=== PATIENT | male | born 1990 | race Two or more races ===

== ENCOUNTER 2017-05-28 14:54 | Inpatient (IN) | payer MEDICAID ==
[~2017-05-28] VITALS: Ht 182.9 cm; Wt 99.8 kg
[2017-05-28] MEDS ORDERED: diphenhydrAMINE 50 MG/1 ML VIAL IV ONE ×2 (16:00→19:15)
[2017-05-28] MEDS ORDERED: FAMOTIDINE. 20 MG/2 ML VIAL IV ONE ×2 (16:00→16:21)
[2017-05-28] MEDS ORDERED: IV NORMAL SALINE 1000 ML BAG IV ONE ×2 (16:00→20:30)
[2017-05-28 16:06] LABS: BASOPHILS % (AUTO) 0.2 % (0.0-2.0); EOSINOPHILS % (AUTO) 0.2 % (0.0-7.0); HEMOGLOBIN 14.6 G/DL (14.0-18.0); LYMPHOCYTES # (AUTO) 1.1 K/UL (0.8-4.8); LYMPHOCYTES % (AUTO) 8.4 % (20.5-51.5); MEAN CORPUSCULAR HEMOGLOBIN 29.1 UUG (27.0-31.0); MEAN CORPUSCULAR HGB CONC 34 g/dL (32.0-37.0); MEAN CORPUSCULAR VOLUME 85.8 FL (82.0-92.0); MONOCYTES % (AUTO) 8.2 % (0.0-11.0); NEUTROPHILS # (AUTO) 10.5 K/UL (1.8-8.9); PLATELET COUNT (AUTO) 318 K/UL (150-450); RED BLOOD CELL COUNT(AUTO) 5.01 MIL/UL (4.7-6.1); WHITE BLOOD COUNT (AUTO) 12.6 K/UL (4.0-11.2)
[2017-05-28] MEDS ORDERED: diphenhydrAMINE 50 MG/1 ML VIAL ONE ×2 (16:21→19:32)
[2017-05-28] MEDS ORDERED: HYDROMORPHONE 1 MG/1 ML DISP.SYRIN ONE ×3 (16:29→19:48)
[2017-05-28] MEDS ORDERED: HYDROMORPHONE 1 MG/1 ML DISP.SYRIN IV ONE ×3 (16:30→19:45)
--- NOTE | 2017-05-28 16:32 | NUR ---
saline locked placed earlier, meds administered, 1l 0.9ns infusing. pt transported via [place] to ct scan.
[2017-05-28] MEDS ORDERED: ACETAMINOPHEN ES 500 MG TABLET PO ONE (16:45)
[2017-05-28] MEDS ORDERED: ACETAMINOPHEN ES 500 MG TABLET ONE (17:10)
[2017-05-28 17:43] LABS: CREATININE 1.2 mg/dL (0.6-1.3); POTASSIUM 3.3 mmol/L (3.5-5.1)
[2017-05-28] MEDS ORDERED: LIDOCAINE VISCUS 2% 15 ML UDC MM ONE ×2 (17:45→21:00)
[2017-05-28] MEDS ORDERED: MAG HYDROX/AL HYDROX/SIMETH 30 ML LIQUID UDC PO ONE (17:45)
[2017-05-28 17:48] LABS: BILIRUBIN,DIRECT 0.4 mg/dL (0.0-0.2); BILIRUBIN,TOTAL 5.7 mg/dL (0.2-1.0); TOTAL PROTEIN, SERUM 8.4 g/dL (6.4-8.2)
--- NOTE | 2017-05-28 17:59 | NUR ---
all md orders completed. pt positioned for comfort.
[2017-05-28] MEDS ORDERED: LIDOCAINE VISCUS 2% 15 ML UDC ONE ×2 (18:04→21:22)
[2017-05-28] MEDS ORDERED: MAG HYDROX/AL HYDROX/SIMETH 30 ML LIQUID UDC ONE (18:04)
[2017-05-28] MEDS ORDERED: POT CHLORIDE/POT BICARB/CIT AC 25 MEQ TABLET.EFF PO ONE (18:30)
[2017-05-28] MEDS ORDERED: POTASSIUM BICARBONATE/CIT AC 25 MEQ TABLET.EFF ONE (18:41)
--- NOTE | 2017-05-28 19:05 | NUR ---
Received report from VICTORINO Cadet. Assumed care of pt at this time. Dr. Brooks at bedside.
--- NOTE | 2017-05-28 19:10 | NUR ---
all md orders completed. bedside sbar repoert to jaime ghotra. pt positioned for comfort, urine was sent to the lab.
[2017-05-28 19:12] LABS: *BILIRUBIN,URIN NEGATIVE (NEGATIVE); *BLOOD, URINE NEGATIVE (NEGATIVE); *CLARITY,URINE CLEAR (CLEAR); *COLOR,URINE YELLOW (YELLOW); *KETONES,URINE NEGATIVE (NEGATIVE); *PROTEIN,URINE NEGATIVE (NEGATIVE); *UROBILINOGEN,URINE 0.2 E.U./dl (NORMAL); LEUKOCYTE ESTERASE ,URINE NEGATIVE (NEGATIVE); NITRITE, URINE NEGATIVE (NEGATIVE); PH,URINE 5.5 (5.0-8.0); UGLUCOSE NEGATIVE (NEGATIVE)
[2017-05-28] MEDS ORDERED: LEVOFLOXACIN 750 MG/D5W 150 ML PIGGYBACK IV ONE (19:15)
[2017-05-28 19:26] LABS: BACTERIA,URINE NONE SEEN /HPF (NONE SEEN); RBC,URINE NONE SEEN /HPF (0-3); SQUAMOUS EPITHELIAL CELL,UR FEW /HPF (NONE SEEN); WBC,URINE NONE SEEN /HPF (0-3)
[2017-05-28] MEDS ORDERED: MORPHINE SULFATE 2 MG/1 ML DISP.SYRIN IV ONE (19:30)
[2017-05-28] MEDS ORDERED: ONDANSETRON 4 MG/2 ML VIAL IV ONE (19:30)
[2017-05-28] MEDS ORDERED: MORPHINE SULFATE 4 MG/1 ML DISP.SYRIN ONE ×2 (19:42→22:16)
[2017-05-28] MEDS ORDERED: ONDANSETRON 4 MG/2 ML VIAL ONE (19:42)
--- NOTE | 2017-05-28 19:42 | NUR ---
Pt medicated for pain, nausea and itching. Will monitor for effects of medication. Pt resting in position of comfort for self. Admission pending.
--- NOTE | 2017-05-28 19:54 | NUR ---
ABT infusion started, will monitor for any adverse reactions.
[2017-05-28] MEDS ORDERED: LEVOFLOXACIN 750MG/D5W 150 ML IV ONE (20:00)
--- NOTE | 2017-05-28 20:30 | NUR ---
Reviewed chart with Dr. Alvarado, who at this time decided to call a "code sepsis". Second liter of NS started, infusing freely to gravity. ABT infusion conts, no adverse reactions noted at this time. EPIC paged to update on pt condition.
--- NOTE | 2017-05-28 20:50 | NUR ---
Report called to VICTORINO Jesus. Preparing to transfer pt to the floor
--- NOTE | 2017-05-28 21:11 | NUR ---
Pt requesting more pain medication. Dr. Alvarado into speak with pt.
--- NOTE | 2017-05-28 21:25 | NUR ---
RECEIVED PT FROM ER,GOT REPORT FROM FAHAD/NATUROPATH;VIA RADHA ACCOMPANIED BY LIZETTE/PT'S FIANCE;NEWLY ADMISSION W/DX OF FEVER,LIVER FAILURE;PT'S A/A/O X4 C/O ABDOMINAL PAIN 08/15;EDUCATED TO PT,WILL CALL MD FOR ADMISSION ORDER.CALLED LORENZO SULLIVAN/SILK SCREEN PRINTING RACKER WHO'S MAGNETIC RESONANCE IMAGING COORDINATOR FOR ,DISCUSSED W/HER ABOUT PT REQUESTED;PER LAURIE STATED "I ALREADY PUT ORDERS IN";CARRIED OUT ORDERS AND UPDATED THE PLAN OF CARE TO PT.PT'S ANXIOUS ON/OFF.KEPT COMFORT.CALL-LIGHT WITHIN REACH.CLOSELY MONITORING TO PT,STILL GAVE FLUID W/NSS BOLUS FROM ER,EDUCATED TO PT;HE VERBALIZED UNDERSTANDING.
[2017-05-28 21:39] VITALS: BP 103/77
[2017-05-28] MEDS ORDERED: MAGNESIUM HYDROXIDE 30 ML LIQUID UDC PO PRN (21:45)
[2017-05-28] MEDS ORDERED: ZOLPIDEM 5 MG TABLET PO PRN (21:45)
[2017-05-28] MEDS ORDERED: HYDROCODONE/APAP 5-325MG TABLET PO PRN (21:45)
[2017-05-28] MEDS ORDERED: ONDANSETRON 4 MG/2 ML VIAL IV PRN (21:45)
[2017-05-28] MEDS: PIPERACILLIN/TAZOBACTAM/D5W 3.375 G in PREMIXED 1 EACH IV SCH (22:00)
[2017-05-28] MEDS: MORPHINE SULFATE 2 MG/1 ML DISP.SYRIN IV PRN (22:11)
[2017-05-28] MEDS: ACETAMINOPHEN 325 MG TABLET PO PRN (22:49)
[2017-05-28] MEDS: IV NS 1000 ML 1,000 ML IV PRN (22:52)
[2017-05-28] MEDS ORDERED: ACETAMINOPHEN 325 MG TABLET ONE (22:59)
[2017-05-28] MEDS ORDERED: PIPERACILLIN SODIUM/TAZO 3.375 GM VIAL ONE (23:30)
--- NOTE | 2017-05-28 23:50 | NUR ---
SINCE ADMISSION UNTIL NOW PT CALLED FOR MANY TIMES,REQUESTED FOR DILAUDID EVERY TIME,EDUCATED TO PT ABOUT TREATMENT,CALLED LAURIE AND DISCUSSED W/HER ABOUT PT'S NEED;SHE STATED THAT"MORPHINE'S THE ONLY MEDICATION THAT PT'S BE ABLE TO GET IT DUE TO PT'S MEDICAL PROBLEM DURING THIS TIME";WENT BACK TO EXPLAIN TO PT;ICE PACK'S GIVEN TO PT;EDUCATED TO PT ABOUT DISEASE PROCESS,HE STATED THAT"I'S SO SICK";ASSISTED FOR TEPID SPONGE;GAVE MOTRIN TO PT( RECORD) W/SIPPED OF WATER;CONTINUED MONITORING TO PT.
[2017-05-29] MEDS ORDERED: IBUPROFEN 600 MG TABLET PO PRN (00:15)
[2017-05-29] MEDS ORDERED: IBUPROFEN 600 MG TABLET ONE (00:34)
[2017-05-29] MEDS: IV NS 1000 ML 1,000 ML IV PRN (01:30)
[2017-05-29] MEDS: diphenhydrAMINE 50 MG/1 ML VIAL IV PRN (01:52)
--- NOTE | 2017-05-29 01:52 | NUR ---
ASSISTED PT FOR AM CARE IN THE BATHROOM PER PT REQUESTED;PT C/O ITCHING @ ALL OVER BODY ESPECIALLY FEET AND HANDS;CHECKED ALL BODY;NO RASH'S SEEN;CALLED ALICE FELIX AND NOTIFIED HER ABOUT IT;GOT ORDER FOR BENADRYL 25 MG IVP;GAVE TO PT AT THIS TIME;EDUCATED TO PT;HE VERBALIZED UNDERSTANDING.CONTINUED MONITORING TO PT.CHARGE NURSE'S NOTIFIED ABOUT PT'S BEHAVIOR,AND AWARE ABOUT IT.
[2017-05-29] MEDS ORDERED: diphenhydrAMINE 50 MG/1 ML VIAL ONE (02:01)
[2017-05-29] MEDS: MORPHINE SULFATE 2 MG/1 ML DISP.SYRIN IV PRN ×2 (02:02→05:56)
[2017-05-29] MEDS ORDERED: MORPHINE SULFATE 4 MG/1 ML DISP.SYRIN ONE ×3 (02:11→22:35)
--- NOTE | 2017-05-29 04:25 | NUR ---
PT REQUESTED TO CHECK TEMPERATURE ON/OFF(SEE RECORD) STATED THAT" I WANT TO KNOW FOR MY RECORD),ALSO CHANGED HIS GOWN AND ALL BED SHEETS,STATED THAT" I WANT TO MAKE SURE,IT'LL BE CLEANED BECAUSE I'S SWEATING A ALT",THE NEED'S MET.KEPT COMFORT AND NPO ORDER.MAINTAINED IVF ORDER,CLOSELY MONITORING TO PT.TOLD PT TO RELAX DUE TO PT KEPT ASKING ABOUT WHAT'S GOING TO BE HAPPENED TO ME IN THE MORNING,EVEN THOUGH I ALREADY EXPLAINED TO HIM MANY TIMES.KEPT CALL-LIGHT WITHIN REACH.
[2017-05-29 05:06] VITALS: BP 111/69
[2017-05-29] MEDS ORDERED: PIPERACILLIN SODIUM/TAZO 3.375 GM VIAL ONE (05:33)
[2017-05-29] MEDS: PIPERACILLIN/TAZOBACTAM/D5W 3.375 G in PREMIXED 1 EACH IV SCH ×2 (05:56→14:00)
--- NOTE | 2017-05-29 06:00 | NUR ---
CONSENT FOR HIDA SCAN'S SIGNED BY PT AT THIS TIME;FIBRE TECHNOLOGIST CAME AND SPOKE TO PT AT THE BEDSIDE.MORPHINE 2 MG IVP X1 TO PT REQUEST,PAIN'S CONTROLLED AND PT'S ABLE TO SLEEP ON/OFF.KEPT NPO ORDER;PT STATED THAT"I'M VERY HUNGRY,REINFORCED TO PT ABOUT THE PURPOSE OF NPO TO PT,HE'S CALM AT THIS TIME NOTED.MAINTAINED IVF TO PT ORDER.PT TOLERATED WELL WITH TX( RECORD) NOTED.CONTINUED MONITORING TO PT.
[2017-05-29] MEDS: PANTOPRAZOLE SODIUM 40 MG TABLET.DR PO SCH (07:00)
--- NOTE | 2017-05-29 07:10 | NUR ---
RECEIVED REPORT FROM FOUNDRY TENDER, PATIENT IS IN BED AWAKE, SIDE RAILS UP X2, BED ALARM SET, BED IN LOW POSITION. PATIENT COMPLAINING OF PAIN 7/10 AND REQUESTING TO HAVE DOCTOR INCREASE PAIN MEDICATION DOSAGE.
[2017-05-29 07:27] LABS: BASOPHILS % (AUTO) 0.2 % (0.0-2.0); EOSINOPHILS # (AUTO) 0.1 K/uL (0.0-0.7); EOSINOPHILS % (AUTO) 0.8 % (0.0-7.0); HEMATOCRIT 34.7 % (40-50); HEMOGLOBIN 12.4 G/DL (14.0-18.0); LYMPHOCYTES # (AUTO) 0.5 K/UL (0.8-4.8); LYMPHOCYTES % (AUTO) 6.9 % (20.5-51.5); MEAN CORPUSCULAR HEMOGLOBIN 30.5 UUG (27.0-31.0); MEAN CORPUSCULAR HGB CONC 36 g/dL (32.0-37.0); MONOCYTES # (AUTO) 0.6 K/UL (0.1-1.30); MONOCYTES % (AUTO) 7.8 % (0.0-11.0); NEUTROPHILS # (AUTO) 6.3 K/UL (1.8-8.9); NEUTROPHILS % (AUTO) 84.3 % (38.5-71.5); PLATELET COUNT (AUTO) 226 K/UL (150-450); RED BLOOD CELL COUNT(AUTO) 4.08 MIL/UL (4.7-6.1); WHITE BLOOD COUNT (AUTO) 7.5 K/UL (4.0-11.2)
[2017-05-29 07:34] LABS: CREATININE 1.2 mg/dL (0.6-1.3); MAGNESIUM 1.6 mg/dL (1.8-2.4); PHOSPHOROUS 3.6 mg/dL (2.5-4.9); POTASSIUM 3.1 mmol/L (3.5-5.1)
[2017-05-29 08:50] LABS: BILIRUBIN,DIRECT 0.6 mg/dL (0.0-0.2); BILIRUBIN,TOTAL 5.9 mg/dL (0.2-1.0); TOTAL PROTEIN, SERUM 6.7 g/dL (6.4-8.2)
[2017-05-29] MEDS ORDERED: MORPHINE SULFATE 2 MG/1 ML DISP.SYRIN IV PRN ×2 (09:00→22:15)
[2017-05-29] MEDS: POTASSIUM CHLORIDE 50 ML IV SCH ×2 (09:30→11:07)
[2017-05-29] MEDS: MAGNESIUM SULFATE/D5W 100 ML IV SCH ×2 (09:30→12:27)
--- NOTE | 2017-05-29 10:00 | NUR ---
PATIENT REPORTS CONTINUED PAIN, DR MONTALVO CONTACTED AND ORDERED A SINGLE DOSE OF 1MG MORPHINE.
[2017-05-29] MEDS: ACETAMINOPHEN 325 MG TABLET PO PRN (11:30)
[2017-05-29 11:38] VITALS: BP 142/90
--- NOTE | 2017-05-29 12:00 | NUR ---
PATIENT CONTINUES TO BE IN PAIN, ADDITIONAL MEDICATION GIVEN AND NOTIFIED DR MONTALVO, PATIENT WAS SEEN BY DR MONTALVO AND DENIES REQUEST FOR DILAUDID THE PATIENT STATES THAT HE WANTS 6MG OF DILAUDID TO TAKE AWAY HIS PAIN. COMPLETE EVALUATION DONE ON PATIENT BY DR, AND ORDERS REVIEWED FOR PAIN MEDICATION.
[2017-05-29] MEDS: MORPHINE SULFATE 4 MG/1 ML DISP.SYRIN IV PRN ×3 (12:07→20:04)
[2017-05-29] MEDS ORDERED: MORPHINE SULFATE 2 MG/1 ML DISP.SYRIN IV ONE (12:45)
[2017-05-29] MEDS ORDERED: MORPHINE SULFATE 4 MG/1 ML DISP.SYRIN IV ONE (13:30)
--- NOTE | 2017-05-29 14:00 | NUR ---
PATIENT CONTINUES TO EXPERIENCE PAIN, DR MONTALVO NOTIFIED, AND HE AGREED TO GIVE ONE SINGLE DOSE ADDITIONAL OF MORPHINE 1MG. DELIVERED PROMPTLY TO PATIENT. PATIENT ALSO HAD IV STARTED FOR POTASSIUM PATIENT REPORTS THAT IV FEELS LIKE IT IS BURNING PATIENTS ARM. IV DISCONTINUED AND SECOND GRADE TEACHER CALLED TO RESTART IV. POTASSIUM ORDERS WERE CHANGED TO ORAL.
[2017-05-29] MEDS ORDERED: POTASSIUM CHLORIDE 20 MEQ TAB.PRT.SR PO ONE ×2 (15:00)
--- NOTE | 2017-05-29 15:30 | NUR ---
NEW IV STARTED ON LEFT ARM, MAGNESIUM HUNG, AND PATIENT STARTED SCREAMING IN PAIN. IV WAS DISCONTINUED AND LORENZO CONTACTED FOR ORDER CHANGE OF MAGNESIUM TO ORAL DOSE 800MG MAG-OX.
[2017-05-29 15:53] VITALS: BP 120/84
--- NOTE | 2017-05-29 16:25 | NUR ---
PATIENT CONTINUES TO REPORT PAIN IN ABDOMEN, 2MG IV MORPHINE GIVEN ORDERED. PATIENT ALSO REQUESTED THAT A DIETARY CONSULT BE MADE. DIETARY CONTACTED AND TOLD THAT THE PATIENT WANTS CHICKEN, MASHED POTATOES , BREAD AND SOUP FOR DINNER. AFTER DINNER IS SERVED DIETARY CONSULT WILL VISIT PATIENT FOR TOMORROWS MENU CHOOSING.
[2017-05-29] MEDS: AMOXICILLIN TRIHYDRATE 500 MG CAPSULE PO SCH ×2 (17:00→17:43)
[2017-05-29] MEDS ORDERED: MAGNESIUM OXIDE 400 MG TABLET PO ONE (17:00)
--- NOTE | 2017-05-29 18:00 | NUR ---
CONTACTED DR MONTALVO FOR PATIENTS CONCERNS OF ALLERGY TO AMOXICILLIN, CALLED BACK AND DISCONTINUED AMOXICILLIN AND ORDERED AZYTHROMYCIN. NO INCREASE OF PAIN MEDICATION AUTHORIZED, PATIENT WAS REFERRED TO PAIN MANAGEMENT AND GENERAL SURGERY CONSULT. BOTH ON [facility] WERE CALLED FOR CONSULTATION.
--- NOTE | 2017-05-29 20:30 | NUR ---
PT RECEIVED SITTING UP IN BED ANXIOUS AND RESTLESS, C/O PAIN TO ABDOMEN, GIVEN MORPHINE ORDERED. OBSERVED TO BE IN NEEDY ALTHOUGH COMFORT MEASURES PROVIDED. IVF RUNNING AT 100ML/HR IN LEFT ARM, TOLERATING WELL. NOTED TO HAVE SOMEWHAT DISTENDED ABDOMEN. NO ACUTE DISTRESS NOTED. BED IN LOW AND LOCKED POSITION, CALL LIGHT WITHIN REACH.
[2017-05-29 20:38] VITALS: BP 105/74
[2017-05-29] MEDS ORDERED: AZITHROMYCIN 250 MG TABLET PO ONE (21:00)
--- NOTE | 2017-05-29 21:00 | NUR ---
PT WANTING TO GO "OUTSIDE FOR FRESH AIR" "AND WALK AROUND". PT EDUCATED ABOUT THE SAFETY OF RESTING AT THIS TIME. OBSERVED TO HAVE EXHAUSTION WITH WALKING HALLWAY. PT REMAINS UNCOOPERATIVE DESPITE EDUCATION AND COMFORT MEASURES PROVIDED.
--- NOTE | 2017-05-29 22:06 | NUR ---
PER MD PT MORPHINE DOSE TO BE CHANGED TO MORPHINE 3MG PO Q2 PRN. MD ALSO REQUESTED REPEAT CT OF ABDOMEN AND REPEAT LACTATE LAB IN AM.
[2017-05-29] MEDS ORDERED: METRONIDAZOLE 500 MG/NS 100ML 500 MG in PREMIXED 1 EACH IV SCH (22:15)
--- NOTE | 2017-05-29 22:30 | NUR ---
PT REMAINS DEMANDING OF MEDICATION FOR DESPITE EDUCATION ABOUT MEDICATION SCHEDULE. PT WILL HAVE REPEAT OF CT ABDOMEN, CONSENT SIGNED. PT WILL RECEIVE FLAGYL IV PER MD ORDER.
[2017-05-29] MEDS ORDERED: METRONIDAZOLE 500 MG/NS 100ML 100 ML IV ONE ×2 (23:28→23:29)
[2017-05-30] MEDS ORDERED: MORPHINE SULFATE 4 MG/1 ML DISP.SYRIN ONE ×4 (00:41→06:43)
--- NOTE | 2017-05-30 02:45 | NUR ---
PT C/O PAIN TO ABDOMEN 08/15. PT CONTINUES TO BE DEMANDING AND NEEDY DESPITE EDUCATION AND COMFORT MEASURES PROVIDED. GIVEN MORPHINE ORDERED. C-DIFF RESULTS STILL PENDING.
[2017-05-30 04:00] VITALS: BP 105/58
--- NOTE | 2017-05-30 04:40 | NUR ---
PT C/O PAIN TO ABDOMEN 10/10 GIVEN MORPHINE ORDERED. TOLERATING IVF WELL. NO ACUTE DISTRESS NOTED. SAFETY MEASURES MAINTAINED.
--- NOTE | 2017-05-30 06:45 | NUR ---
PT SLEPT INTERMITTENTLY THROUGH OUT THE NIGHT. C/O PAIN IN ABDOMEN 10/10 GIVEN MORPHINE ORDERED. NO ACUTE DISTRESS NOTED. URINAL AT BEDSIDE. SAFETY MEASURES MAINTAINED.
[2017-05-30] MEDS: PANTOPRAZOLE SODIUM 40 MG TABLET.DR PO SCH (07:00)
[2017-05-30] MEDS: METRONIDAZOLE 500 MG/NS 100ML 500 MG in PREMIXED 1 EACH IV SCH ×3 (07:03→18:06)
[2017-05-30 07:10] LABS: BASOPHILS % (AUTO) 0.4 % (0.0-2.0); EOSINOPHILS # (AUTO) 0.2 K/uL (0.0-0.7); HEMATOCRIT 35.2 % (40-50); HEMOGLOBIN 12.5 G/DL (14.0-18.0); LYMPHOCYTES # (AUTO) 1.5 K/UL (0.8-4.8); LYMPHOCYTES % (AUTO) 16.1 % (20.5-51.5); MEAN CORPUSCULAR HEMOGLOBIN 30.5 UUG (27.0-31.0); MEAN CORPUSCULAR HGB CONC 36 g/dL (32.0-37.0); MEAN CORPUSCULAR VOLUME 85.8 FL (82.0-92.0); MONOCYTES # (AUTO) 1.4 K/UL (0.1-1.30); MONOCYTES % (AUTO) 14.8 % (0.0-11.0); NEUTROPHILS # (AUTO) 6.1 K/UL (1.8-8.9); NEUTROPHILS % (AUTO) 66.7 % (38.5-71.5); PLATELET COUNT (AUTO) 227 K/UL (150-450); WHITE BLOOD COUNT (AUTO) 9.2 K/UL (4.0-11.2)
--- NOTE | 2017-05-30 07:15 | NUR ---
REC'D BEDSIDE SBAR REPORT. PT AWAKE, AWAITING FOR CT SCAN TODAY.
[2017-05-30 07:33] LABS: PHOSPHOROUS 4.2 mg/dL (2.5-4.9); POTASSIUM 3.4 mmol/L (3.5-5.1)
[2017-05-30] MEDS ORDERED: IOHEXOL 300MG/ML 100 ML INFUS..BTL ONE (08:03)
[2017-05-30] MEDS ORDERED: IV NORMAL SALINE 250 ML IV ONE (08:03)
[2017-05-30 08:51] LABS: *AMPHETAMINE, URINE NEGATIVE (NEGATIVE); *BARBITURATE, URINE NEGATIVE (NEGATIVE); *CANNABINOID, URINE POSITIVE (NEGATIVE); *COCCAINE, URINE NEGATIVE (NEGATIVE); *OPIATE, URINE POSITIVE (NEGATIVE); *PHENCYCLIDINE SCREEN,URINE NEGATIVE (NEGATIVE)
[2017-05-30 09:14] LABS: BAND % (MANUAL) 2 % (0-10); EOSINOPHILS % (MANUAL) 3 % (0-8); LYMPHOCYTES % (MANUAL) 21 % (20-40); MONOCYTES % (MANUAL) 10 % (2-10); NEUTROPHILS % (MANUAL) 64 % (42-75)
[2017-05-30] MEDS: MORPHINE SULFATE 4 MG/1 ML DISP.SYRIN IV PRN ×6 (09:22→22:44)
[2017-05-30] MEDS ORDERED: POTASSIUM CHLORIDE 50 ML IV SCH (10:00)
[2017-05-30] MEDS: diphenhydrAMINE 50 MG/1 ML VIAL IV PRN ×3 (10:00→22:47)
[2017-05-30 11:13] VITALS: BP 107/62
[2017-05-30] MEDS ORDERED: POTASSIUM CHLORIDE 20 MEQ TAB.PRT.SR PO ONE (12:00)
--- NOTE | 2017-05-30 19:32 | NUR ---
PT PROGRESSING TOWARDS GOALS, CONTINUE PLAN OF CARE.
[2017-05-30 20:04] VITALS: BP 94/62
[2017-05-30] MEDS ORDERED: AZITHROMYCIN 250 MG TABLET PO SCH (21:00)
[2017-05-31] MEDS: MORPHINE SULFATE 4 MG/1 ML DISP.SYRIN IV PRN ×8 (00:40→18:39)
[2017-05-31] MEDS: METRONIDAZOLE 500 MG/NS 100ML 500 MG in PREMIXED 1 EACH IV SCH ×3 (00:43→12:21)
[2017-05-31] MEDS: IV NS 1000 ML 1,000 ML IV PRN (03:40)
[2017-05-31 04:00] VITALS: BP 94/64
--- NOTE | 2017-05-31 04:29 | NUR ---
PT COMPLAINS OF SEVERE ABDOMINAL PAIN 07/16. PAIN MEDICATION ADMINISTERED ORDERED. PT STATES THAT AFTER HAVING WATERY BOWEL MOVEMENT, ABDOMEN IS DISTENDED. BOWEL SOUNDS ACTIVE IN ALL FOUR QUADRANTS. PT STATES PAIN/TENDERNESS LOCATED ON RIGHT AND LEFT LOWER QUADRANT.
--- NOTE | 2017-05-31 06:29 | NUR ---
END OF SHIFT NOTES. PT NEEDS ATTENDED. V/S STABLE. NO ACUTE DISTRESS NOTED. PATIENT COMPLAINS OF ABDOMINAL PAIN 07/16. PAIN MEDICATION ADMINISTERED ORDERED. IVF INFUSING. SAFETY MEASURES MAINTAINED. CALL LIGHT WITHIN REACH.
[2017-05-31] MEDS: PANTOPRAZOLE SODIUM 40 MG TABLET.DR PO SCH (06:57)
[2017-05-31 08:08] LABS: BASOPHILS % (AUTO) 0.4 % (0.0-2.0); EOSINOPHILS # (AUTO) 0.3 K/uL (0.0-0.7); EOSINOPHILS % (AUTO) 5.2 % (0.0-7.0); HEMATOCRIT 34.9 % (40-50); HEMOGLOBIN 12.3 G/DL (14.0-18.0); LYMPHOCYTES # (AUTO) 1.4 K/UL (0.8-4.8); LYMPHOCYTES % (AUTO) 22.5 % (20.5-51.5); MEAN CORPUSCULAR HEMOGLOBIN 29.8 UUG (27.0-31.0); MEAN CORPUSCULAR HGB CONC 35 g/dL (32.0-37.0); MEAN CORPUSCULAR VOLUME 84.9 FL (82.0-92.0); MONOCYTES # (AUTO) 0.8 K/UL (0.1-1.30); MONOCYTES % (AUTO) 12.9 % (0.0-11.0); NEUTROPHILS # (AUTO) 3.6 K/UL (1.8-8.9); PLATELET COUNT (AUTO) 264 K/UL (150-450); RED BLOOD CELL COUNT(AUTO) 4.11 MIL/UL (4.7-6.1); WHITE BLOOD COUNT (AUTO) 6.1 K/UL (4.0-11.2)
[2017-05-31 08:16] LABS: *RHEUMATOID FACTOR SCREEN NEGATIVE (NEGATIVE)
--- NOTE | 2017-05-31 08:28 | NUR ---
PT AWAKE IN BED, IN NO ACUTE DISTRESS, WOMEN'S SOCCER COACH WAS IN ROOM TO DRAW BLOOD, PT ASKED ASKED IF BLOOD WAS FOR LUPUS, WOMEN'S SOCCER COACH SAID MAGDA PANEL. PT WORRIED AND CALLED DR OBRIEN, DR OBRIEN REASSURED PT THAT MAGDA IS FOR LUPUS HOWEVER PT CALLED MYSELF 2 TIMES TO MAKE SURE THAT BLOOD WAS TAKEN FOR LUPUS, ASSURED PT THAT ALL THE BLOOD WILL BE USED FOR ALL THE LABS THAT THE DR HAS ORDERED. CALL LIGHT IN REACH, WILL CONTINUE TO MONITOR
[2017-05-31 08:33] LABS: CREATININE 0.9 mg/dL (0.6-1.3); PHOSPHOROUS 4.2 mg/dL (2.5-4.9); POTASSIUM 3.3 mmol/L (3.5-5.1); TOTAL PROTEIN, SERUM 7.4 g/dL (6.4-8.2)
[2017-05-31] MEDS: diphenhydrAMINE 50 MG/1 ML VIAL IV PRN (09:49)
[2017-05-31] MEDS ORDERED: POTASSIUM CHLORIDE 20 MEQ TAB.PRT.SR PO ONE (10:00)
[2017-05-31 10:31] LABS: BILIRUBIN,DIRECT 0.4 mg/dL (0.0-0.2)
--- NOTE | 2017-05-31 12:09 | NUR ---
MEDICAL ASSISTANT DERMATOLOGY IN TO SEE PATIENT
[2017-05-31 12:13] VITALS: BP 99/68
--- NOTE | 2017-05-31 14:20 | NUR ---
stool specimen sent
[2017-05-31] MEDS ORDERED: MORPHINE SULFATE 2 MG/1 ML DISP.SYRIN IV PRN (14:45)
[2017-05-31 15:08] LABS: *OCCULT BLOOD STOOL NEGATIVE (NEGATIVE)
[2017-05-31] MEDS ORDERED: METR500T4 PO (15:26)
[2017-05-31] MEDS ORDERED: AZIT250T6 PO (15:26)
[2017-05-31] MEDS ORDERED: IBUP-1955 PO (15:26)
[2017-05-31] MEDS ORDERED: LACT1CAP57 PO (15:26)
[2017-05-31 15:41] VITALS: BP 95/47
[2017-05-31] MEDS ORDERED: LOPERAMIDE HCL 1 MG/5 ML UDC PO PRN (17:45)
[2017-05-31] MEDS ORDERED: SHARK LIVER OIL/PETROLAT OINT 60 GM TUBE RC PRN (17:45)
--- NOTE | 2017-05-31 18:00 | NUR ---
PT REPEATEDLY REQUESTING SOCK LINING EXAMINER TO COME BACK WHEN SOCK LINING EXAMINER HAS SEEN PATIENT 4 TIMES ALREADY. PT WAS GIVEN HANDOUTS AND EDUCATION BUT STILL WANTS MORE TIME. PT HAS BEEN DISCHARGED BUT REFUSING TO LEAVE UNTIL DR OBRIEN SPEAKS TO HIM. PT NOW REQUESTING IMODIUM FOR DIARRHEA AND HEMORRHOID CREAM, LUCA MADE AWARE AND ORDERS WERE RECEIVED, WILL FOLLOW THROUGH
--- NOTE | 2017-05-31 19:39 | NUR ---
DISCHARGE PROTOCOL FOLLOWED, PT REMOVED OWN IV. REFUSED PICTURE NO REDNESS OR IRRITATION NOTED. DISCHARGE EDUCATION PROVIDED, PT VERBALIZED UNDERSTANDING, ALL BELONGINGS ACCOUNTED FOR AND RETURNED TO PATIENT. TAXI VOUCHER WAS GIVEN AND ORDERED. WILL ARRIVE IN 5-15 MINUTES
[2017-05-31] MEDS ORDERED: METRONIDAZOLE 500 MG TABLET PO SCH (22:00)
[2017-06-01 10:12] LABS: HEPATITIS B SURFACE AB Non Reactive (.); HEPATITIS B SURFACE AG Negative (Negative)
[2017-06-01 13:09] LABS: HEPATITIS A AB, IgM Negative (Negative)
== END 2017-05-31 19:57 | disposition home or self-care (01) | DRG 720 ==
LOC: ER 14:54 → MED 21:03
PROVIDERS: ADMIT Family Medicine; ATTEND Family Medicine
DX: A41.9 Sepsis, unspecified organism (principal); E87.2 Acidosis; E87.1 Hypo-osmolality and hyponatremia; K76.0 Fatty (change of) liver, not elsewhere classified; E83.111 Hemochromatosis due to repeated red blood cell transfusions; E80.4 Gilbert syndrome; R65.20 Severe sepsis without septic shock; J02.0 Streptococcal pharyngitis; E87.6 Hypokalemia; Z88.8 Allergy status to other drugs, medicaments and biological substances; Z98.84 Bariatric surgery status; Z83.3 Family history of diabetes mellitus; Z93.3 Colostomy status; V89.2XXS Person injured in unspecified motor-vehicle accident, traffic, sequela; Z98.890 Other specified postprocedural states; K80.20 Calculus of gallbladder without cholecystitis without obstruction; K44.9 Diaphragmatic hernia without obstruction or gangrene; J02.9 Acute pharyngitis, unspecified; E83.42 Hypomagnesemia; D64.9 Anemia, unspecified; F43.10 Post-traumatic stress disorder, unspecified; F41.9 Anxiety disorder, unspecified; D35.02 Benign neoplasm of left adrenal gland; K52.9 Noninfective gastroenteritis and colitis, unspecified; R82.5 Elevated urine levels of drugs, medicaments and biological substances; E83.110 Hereditary hemochromatosis; K22.8 Other specified diseases of esophagus; R21 Rash and other nonspecific skin eruption
CPT/HCPCS: 36415; 78445; 80307; 82746; 83605; 83690; 83735; 84100; 85025; 85610; 86140; 86403; 86430; 86705; 86706; 86709; 86803; 87040; 87070; 87086; 87340; 87806; A9150; A9537; J1170; J1200; J1956; J2270; J2405; J2543; J3475; J3480; J3490; J7030; J7050; J7060; Q0144; Q9967

== ENCOUNTER 2017-07-08 00:57 | Inpatient (IN) | payer BC, MEDICAID, OTHER ==
[~2017-07-08] VITALS: Ht 180.3 cm; Wt 101.6 kg
[~2017-07-08 00:57] MED LIST: AZIT250T6 PO; IBUP-1955 PO; LACT1CAP57 PO; METR500T4 PO
[2017-07-08] MEDS ORDERED: ONDANSETRON 4 MG/2 ML VIAL IV ONE (01:30)
[2017-07-08] MEDS ORDERED: FAMOTIDINE. 20 MG/2 ML VIAL IV ONE ×2 (01:30→01:53)
[2017-07-08] MEDS ORDERED: HYDROMORPHONE 1 MG/1 ML DISP.SYRIN IV ONE ×2 (01:30→02:15)
[2017-07-08] MEDS ORDERED: IV NORMAL SALINE 1000 ML BAG IV ONE ×2 (01:30→07:20)
[2017-07-08 01:49] LABS: BASOPHILS % (AUTO) 0.3 % (0.0-2.0); EOSINOPHILS # (AUTO) 0.2 K/uL (0.0-0.7); EOSINOPHILS % (AUTO) 1.4 % (0.0-7.0); HEMATOCRIT 37.5 % (40-50); HEMOGLOBIN 13.3 G/DL (14.0-18.0); LYMPHOCYTES # (AUTO) 1.7 K/UL (0.8-4.8); LYMPHOCYTES % (AUTO) 12.3 % (20.5-51.5); MEAN CORPUSCULAR HEMOGLOBIN 29.8 UUG (27.0-31.0); MEAN CORPUSCULAR HGB CONC 35 g/dL (32.0-37.0); MEAN CORPUSCULAR VOLUME 84.1 FL (82.0-92.0); MONOCYTES # (AUTO) 1.2 K/UL (0.1-1.30); MONOCYTES % (AUTO) 8.4 % (0.0-11.0); NEUTROPHILS # (AUTO) 11.1 K/UL (1.8-8.9); NEUTROPHILS % (AUTO) 77.6 % (38.5-71.5); PLATELET COUNT (AUTO) 299 K/UL (150-450); RED BLOOD CELL COUNT(AUTO) 4.46 MIL/UL (4.7-6.1); WHITE BLOOD COUNT (AUTO) 14.2 K/UL (4.0-11.2)
[2017-07-08] MEDS ORDERED: HYDROMORPHONE 2 MG/1 ML DISP.SYRIN ONE ×3 (01:53→06:17)
[2017-07-08] MEDS ORDERED: ONDANSETRON 4 MG/2 ML VIAL ONE (01:53)
[2017-07-08 01:59] LABS: BILIRUBIN,DIRECT 0.2 mg/dL (0.0-0.2); BILIRUBIN,TOTAL 7.3 mg/dL (0.2-1.0); TOTAL PROTEIN, SERUM 7.3 g/dL (6.4-8.2)
[2017-07-08 02:06] LABS: POTASSIUM 2.6 mmol/L (3.5-5.1)
[2017-07-08] MEDS ORDERED: POTASSIUM CHLORIDE 40 MEQ in IV NS 1000 ML 1,000 ML IV ONE (02:15)
[2017-07-08] MEDS ORDERED: diphenhydrAMINE 50 MG/1 ML VIAL IV ONE (02:30)
[2017-07-08] MEDS ORDERED: IOHEXOL 300MG/ML 100 ML INFUS..BTL ONE (02:31)
[2017-07-08] MEDS ORDERED: NORMAL SALINE FLUSH 10 ML DISP.SYRIN ONE (02:31)
[2017-07-08] MEDS ORDERED: IV NORMAL SALINE 250 ML IV ONE (02:31)
[2017-07-08] MEDS ORDERED: diphenhydrAMINE 50 MG/1 ML VIAL ONE (03:28)
[2017-07-08] MEDS ORDERED: LEVOFLOXACIN 750MG/D5W 150 ML IV ONE (04:30)
[2017-07-08] MEDS ORDERED: METRONIDAZOLE 500 MG/NS 100ML 100 ML IV ONE ×2 (04:30→04:58)
[2017-07-08] MEDS ORDERED: Z GUARD REMEDY PASTE 57 GM TUBE TOP PRN (05:15)
[2017-07-08] MEDS ORDERED: HYDROMORPHONE 1 MG/1 ML DISP.SYRIN IV PRN (05:15)
[2017-07-08] MEDS ORDERED: ACETAMINOPHEN 325 MG TABLET PO PRN (05:15)
[2017-07-08] MEDS: METRONIDAZOLE 500 MG/NS 100ML 500 MG in PREMIXED 1 EACH IV SCH ×3 (05:45→21:16)
[2017-07-08 06:04] VITALS: BP 99/63
[2017-07-08] MEDS ORDERED: LEVOFLOXACIN 500 MG/D5W 100 ML ONE ×2 (06:18→06:19)
[2017-07-08] MEDS: PANTOPRAZOLE SODIUM 40 MG TABLET.DR PO SCH ×2 (07:00→09:28)
[2017-07-08] MEDS ORDERED: LIDOCAINE HCL 1% 20 ML VIAL MC ONE (07:20)
[2017-07-08] MEDS ORDERED: PROPOFOL 200 MG/20 ML BOTTLE IV ONE (07:20)
[2017-07-08] MEDS: LACTOBACILLUS RHAMNOSUS GG 1 EACH CAPSULE PO SCH ×2 (09:00→21:16)
[2017-07-08] MEDS: LEVOFLOXACIN 500 MG/D5W 500 MG in PREMIXED 1 EACH IV SCH (09:00)
[2017-07-08] MEDS ORDERED: HYDROMORPHONE 2 MG/1 ML DISP.SYRIN IV PRN ×2 (09:15→11:15)
[2017-07-08 09:42] LABS: POTASSIUM 3.1 mmol/L (3.5-5.1)
[2017-07-08] MEDS ORDERED: POTASSIUM CHLORIDE 20 MEQ TAB.PRT.SR PO ONE (10:00)
[2017-07-08] MEDS ORDERED: POTASSIUM CHLORIDE 20 MEQ TAB.PRT.SR PO SCH (10:00)
[2017-07-08] MEDS: POTASSIUM CHLORIDE 40 MEQ in IV D5 1/2 NS 1000 ML 1,000 ML IV PRN (10:04)
[2017-07-08 11:42] VITALS: BP 102/65
[2017-07-08] MEDS ORDERED: HYDROMORPHONE 2 MG/1 ML DISP.SYRIN IM PRN (11:45)
[2017-07-08] MEDS: HYDROMORPHONE 2 MG/1 ML DISP.SYRIN IV PRN ×4 (11:53→21:24)
[2017-07-08] MEDS: ONDANSETRON 4 MG/2 ML VIAL IV PRN (12:22)
[2017-07-08] MEDS: POTASSIUM CHLORIDE 50 ML IV SCH ×2 (12:45→13:18)
[2017-07-08 16:23] VITALS: BP 108/66
[2017-07-08] MEDS ORDERED: BISACODYL 5 MG TABLET.DR PO ONE (17:00)
[2017-07-08] MEDS: MAGNESIUM SULFATE/D5W 100 ML IV SCH ×2 (17:13→18:13)
[2017-07-08] MEDS ORDERED: diphenhydrAMINE 50 MG/1 ML VIAL IV PRN (17:15)
[2017-07-08] MEDS ORDERED: GOLYTELY 4000 ML BOTTLE PO ONE (19:15)
[2017-07-09] MEDS: HYDROMORPHONE 2 MG/1 ML DISP.SYRIN IV PRN ×5 (00:34→12:36)
[2017-07-09 04:58] LABS: *BILIRUBIN,URIN NEGATIVE (NEGATIVE); *BLOOD, URINE NEGATIVE (NEGATIVE); *CLARITY,URINE CLEAR (CLEAR); *COLOR,URINE YELLOW (YELLOW); *KETONES,URINE NEGATIVE (NEGATIVE); *PROTEIN,URINE NEGATIVE (NEGATIVE); *UROBILINOGEN,URINE 0.2 E.U./dl (NORMAL); LEUKOCYTE ESTERASE ,URINE NEGATIVE (NEGATIVE); NITRITE, URINE NEGATIVE (NEGATIVE); PH,URINE 5.5 (5.0-8.0); UGLUCOSE NEGATIVE (NEGATIVE)
[2017-07-09 05:09] LABS: BACTERIA,URINE NONE SEEN /HPF (NONE SEEN); RBC,URINE 0-3 /HPF (0-3); SQUAMOUS EPITHELIAL CELL,UR FEW /HPF (NONE SEEN)
[2017-07-09] MEDS: METRONIDAZOLE 500 MG/NS 100ML 500 MG in PREMIXED 1 EACH IV SCH ×2 (05:54→14:00)
[2017-07-09] MEDS: PANTOPRAZOLE SODIUM 40 MG TABLET.DR PO SCH (06:27)
[2017-07-09 07:39] LABS: BASOPHILS % (AUTO) 0.3 % (0.0-2.0); EOSINOPHILS # (AUTO) 0.2 K/uL (0.0-0.7); EOSINOPHILS % (AUTO) 1.5 % (0.0-7.0); HEMATOCRIT 34.7 % (40-50); HEMOGLOBIN 12.4 G/DL (14.0-18.0); LYMPHOCYTES # (AUTO) 1.6 K/UL (0.8-4.8); LYMPHOCYTES % (AUTO) 14.5 % (20.5-51.5); MEAN CORPUSCULAR HEMOGLOBIN 30.3 UUG (27.0-31.0); MEAN CORPUSCULAR HGB CONC 36 g/dL (32.0-37.0); MEAN CORPUSCULAR VOLUME 84.9 FL (82.0-92.0); MONOCYTES # (AUTO) 1.1 K/UL (0.1-1.30); MONOCYTES % (AUTO) 10.5 % (0.0-11.0); NEUTROPHILS # (AUTO) 7.8 K/UL (1.8-8.9); NEUTROPHILS % (AUTO) 73.2 % (38.5-71.5); PLATELET COUNT (AUTO) 233 K/UL (150-450); RED BLOOD CELL COUNT(AUTO) 4.08 MIL/UL (4.7-6.1); WHITE BLOOD COUNT (AUTO) 10.7 K/UL (4.0-11.2)
[2017-07-09 07:51] LABS: BILIRUBIN,TOTAL 7.8 mg/dL (0.2-1.0); CREATININE 0.8 mg/dL (0.6-1.3); MAGNESIUM 1.8 mg/dL (1.8-2.4); PHOSPHOROUS 3.1 mg/dL (2.5-4.9); TOTAL PROTEIN, SERUM 6.9 g/dL (6.4-8.2)
[2017-07-09 07:59] LABS: THYROID STIMULATING HORMONE 0.735 mIU/mL (0.358-3.740)
[2017-07-09 08:03] LABS: POTASSIUM 2.8 mmol/L (3.5-5.1)
[2017-07-09] MEDS: LEVOFLOXACIN 500 MG/D5W 500 MG in PREMIXED 1 EACH IV SCH (08:14)
[2017-07-09] MEDS: POTASSIUM CHLORIDE 40 MEQ in IV D5 1/2 NS 1000 ML 1,000 ML IV PRN (08:14)
[2017-07-09] MEDS: LACTOBACILLUS RHAMNOSUS GG 1 EACH CAPSULE PO SCH (09:00)
[2017-07-09] MEDS ORDERED: POTASSIUM CHLORIDE 50 ML IV SCH ×2 (09:00→09:30)
[2017-07-09] MEDS ORDERED: PANT40TA2 PO (09:51)
[2017-07-09] MEDS ORDERED: POTASSIUM CHLORIDE 20 MEQ TAB.PRT.SR PO ONE (11:15)
[2017-07-09 11:34] VITALS: BP 96/63
[2017-07-09] MEDS: ONDANSETRON 4 MG/2 ML VIAL IV PRN (14:11)
[2017-07-09] MEDS ORDERED: PROPOFOL 200 MG/20 ML BOTTLE IV ONE (15:59)
[2017-07-09] MEDS ORDERED: LIDOCAINE HCL 1% 20 ML VIAL MC ONE (15:59)
[2017-07-09] MEDS ORDERED: IV LACTATED RINGERS SOLUTION 1,000 ML BAG IV ONE (15:59)
== END 2017-07-09 16:00 | disposition home or self-care (01) | DRG 254 ==
LOC: ER 00:59 → MED 04:43
PROVIDERS: ADMIT Nurse Practitioner Acute Care
PROC: 0DB68ZX Excision of Stomach, Via Natural or Artificial Opening Endoscopic, Diagnostic (ICD-10-PCS; principal; 2017-07-08 13:30)
PROC: 0DB48ZX Excision of Esophagogastric Junction, Via Natural or Artificial Opening Endoscopic, Diagnostic (ICD-10-PCS; principal; 2017-07-08 13:30)
PROC: 0DBB8ZX Excision of Ileum, Via Natural or Artificial Opening Endoscopic, Diagnostic (ICD-10-PCS; 2017-07-09)
DX: K58.0 Irritable bowel syndrome with diarrhea (principal); F11.20 Opioid dependence, uncomplicated; K21.0 Gastro-esophageal reflux disease with esophagitis; K22.70 Barrett's esophagus without dysplasia; E87.6 Hypokalemia; K52.9 Noninfective gastroenteritis and colitis, unspecified; Z88.1 Allergy status to other antibiotic agents; Z98.84 Bariatric surgery status; S36.50 Unspecified injury of colon; V89.2XXS Person injured in unspecified motor-vehicle accident, traffic, sequela; K80.20 Calculus of gallbladder without cholecystitis without obstruction; K51.50 Left sided colitis without complications; Z90.49 Acquired absence of other specified parts of digestive tract; K46.9 Unspecified abdominal hernia without obstruction or gangrene; F06.4 Anxiety disorder due to known physiological condition
CPT/HCPCS: 36415; 83690; 83735; 84100; 84443; 85025; 85730; A4217; A4663; J1170; J1200; J1956; J2405; J3475; J3480; J3490; J7030; J7050; J7120; Q9967

== ENCOUNTER 2017-09-27 17:08 | Emergency (ER) | payer BC, OTHER ==
[~2017-09-27] VITALS: Ht 180.3 cm; Wt 99.8 kg
[~2017-09-27 17:08] MED LIST changes: -AZIT250T6 PO; -IBUP-1955 PO; -METR500T4 PO; +PANT40TA2 PO
[2017-09-27] MEDS ORDERED: IMODIUM (17:23)
[2017-09-27] MEDS ORDERED: IV NORMAL SALINE 1000 ML BAG IV ONE (17:45)
--- NOTE | 2017-09-27 17:57 | NUR ---
Pt c/o diarrhea, chronic, uncontrollable with Immodium, and jaundice eyes. Pt denies CP, SOB, dizziness, n/v, no other complaints, no distress noted.
[2017-09-27 18:02] LABS: BASOPHILS # (AUTO) 0.1 K/uL (0.0-8.0); BASOPHILS % (AUTO) 0.6 % (0.0-2.0); EOSINOPHILS # (AUTO) 0.3 K/uL (0.0-0.7); EOSINOPHILS % (AUTO) 2.7 % (0.0-7.0); HEMATOCRIT 42.3 % (40-50); HEMOGLOBIN 14.8 G/DL (14.0-18.0); LYMPHOCYTES # (AUTO) 1.7 K/UL (0.8-4.8); LYMPHOCYTES % (AUTO) 18.5 % (20.5-51.5); MEAN CORPUSCULAR HEMOGLOBIN 29.6 UUG (27.0-31.0); MEAN CORPUSCULAR HGB CONC 35 g/dL (32.0-37.0); MEAN CORPUSCULAR VOLUME 84.7 FL (82.0-92.0); MONOCYTES # (AUTO) 0.7 K/UL (0.1-1.30); NEUTROPHILS # (AUTO) 6.6 K/UL (1.8-8.9); NEUTROPHILS % (AUTO) 71.2 % (38.5-71.5); PLATELET COUNT (AUTO) 328 K/UL (150-450); WHITE BLOOD COUNT (AUTO) 9.4 K/UL (4.0-11.2)
[2017-09-27 18:11] LABS: CREATININE 0.9 mg/dL (0.6-1.3); POTASSIUM 3.5 mmol/L (3.5-5.1)
[2017-09-27 18:17] LABS: BILIRUBIN,DIRECT 0.3 mg/dL (0.0-0.2); BILIRUBIN,TOTAL 4.1 mg/dL (0.2-1.0); TOTAL PROTEIN, SERUM 7.9 g/dL (6.4-8.2)
[2017-09-27] MEDS ORDERED: NORMAL SALINE FLUSH 10 ML DISP.SYRIN ONE (18:55)
[2017-09-27] MEDS ORDERED: IV NORMAL SALINE 250 ML IV ONE (18:55)
[2017-09-27] MEDS ORDERED: IOHEXOL 300MG/ML 100 ML INFUS..BTL ONE (18:55)
--- NOTE | 2017-09-27 18:55 | NUR ---
Pt taken to CT
--- NOTE | 2017-09-27 19:18 | NUR ---
Back from CT
[2017-09-27] MEDS ORDERED: LEVOFLOXACIN 500 MG/D5W 100ML PIGGYBACK IV ONE (19:30)
[2017-09-27] MEDS ORDERED: METRONIDAZOLE 500 MG/NS 100 ML PIGGYBACK IV ONE (19:30)
[2017-09-27 20:08] LABS: *BILIRUBIN,URIN NEGATIVE (NEGATIVE); *BLOOD, URINE NEGATIVE (NEGATIVE); *CLARITY,URINE CLEAR (CLEAR); *COLOR,URINE YELLOW (YELLOW); *KETONES,URINE NEGATIVE (NEGATIVE); *PROTEIN,URINE NEGATIVE (NEGATIVE); *UROBILINOGEN,URINE 0.2 E.U./dl (NORMAL); LEUKOCYTE ESTERASE ,URINE NEGATIVE (NEGATIVE); NITRITE, URINE NEGATIVE (NEGATIVE); UGLUCOSE NEGATIVE (NEGATIVE)
[2017-09-27] MEDS ORDERED: METRONIDAZOLE 500 MG/NS 100ML 100 ML IV ONE (20:21)
[2017-09-27] MEDS ORDERED: LEVOFLOXACIN 500 MG/D5W 100 ML ONE (20:46)
[2017-09-27 20:52] LABS: CALCIUM OXALATE CRYSTALS,UR MODERATE /HPF (NONE SEEN); WBC,URINE NONE SEEN /HPF (0-3)
--- NOTE | 2017-09-27 21:25 | NUR ---
iv d/c'd intact, all meds completed, pt d/c'dhome, ama form signed, pt was given rx x4 pt ambulated w/o diff/took all belongings. stated he would possibly return for admission.
[2017-09-27 21:34] VITALS: BP 110/66
== END 2017-09-27 21:34 | disposition left against medical advice (07) ==
LOC: ER 17:12
DX: K52.9 Noninfective gastroenteritis and colitis, unspecified (principal); K80.20 Calculus of gallbladder without cholecystitis without obstruction; Z88.0 Allergy status to penicillin; Z98.890 Other specified postprocedural states; Z90.49 Acquired absence of other specified parts of digestive tract
CPT/HCPCS: 36415; 74177; 76705; 80048; 80076; 81001; 82140; 83690; 85025; 85730; 87086; 96361; 96365; 96367; 99285; A4663; J1956; J3490 ×2; J7030; J7050; Q9967

== ENCOUNTER 2017-12-10 11:43 | Emergency (ER) | payer OTHER ==
[~2017-12-10] VITALS: Ht 180.3 cm; Wt 99.8 kg
[~2017-12-10 11:43] MED LIST changes: +IMODIUM; -LACT1CAP57 PO; -PANT40TA2 PO
--- NOTE | 2017-12-10 12:12 | NUR ---
Patient is asking for water. "Okay to drink water." per Dr Macedo. Filtered water was given accordingly.
--- NOTE | 2017-12-10 12:14 | NUR ---
Patient is now asking for apple juice. Apple juice was given per request.
[2017-12-10 12:24] LABS: BASOPHILS % (AUTO) 0.7 % (0.0-2.0); EOSINOPHILS # (AUTO) 0.1 K/uL (0.0-0.7); EOSINOPHILS % (AUTO) 1.7 % (0.0-7.0); HEMATOCRIT 39.8 % (36.7-47.1); HEMOGLOBIN 14.1 g/dL (12.5-16.3); LYMPHOCYTES # (AUTO) 1.3 K/uL (20.0-40.0); LYMPHOCYTES % (AUTO) 21.4 % (20.5-51.5); MEAN CORPUSCULAR HEMOGLOBIN 30.1 uug (23.8-33.4); MEAN CORPUSCULAR HGB CONC 35 g/dL (32.5-36.3); MONOCYTES # (AUTO) 0.5 K/uL (2.0-10.0); MONOCYTES % (AUTO) 7.7 % (0.0-11.0); NEUTROPHILS # (AUTO) 4.2 K/uL (1.8-8.9); NEUTROPHILS % (AUTO) 68.5 % (38.5-71.5); PLATELET COUNT (AUTO) 305 K/uL (152-348); RED BLOOD CELL COUNT(AUTO) 4.69 MIL/uL (4.06-5.63); WHITE BLOOD COUNT (AUTO) 6.1 K/uL (3.6-10.2)
--- NOTE | 2017-12-10 12:25 | NUR ---
Another cup of cold apple juice given per patient's request, still for urine specimen at this time.
--- NOTE | 2017-12-10 12:29 | NUR ---
Iced apple juice provided in 500ml container per patient's request. "Ok to give." per Dr Macdeo.
[2017-12-10 12:31] LABS: CREATININE 0.9 mg/dL (0.6-1.3); POTASSIUM 3.6 mmol/L (3.5-5.1)
[2017-12-10 12:36] LABS: BILIRUBIN,DIRECT 0.3 mg/dL (0.0-0.2); BILIRUBIN,TOTAL 2.9 mg/dL (0.2-1.0); TOTAL PROTEIN, SERUM 7.9 g/dL (6.4-8.2)
--- NOTE | 2017-12-10 12:39 | NUR ---
Patient is resting comfortably on gurney while readng the ER registration papers to be signed by the patient himself, TOM.
--- NOTE | 2017-12-10 12:54 | NUR ---
pending urine specimen still after frequent reminders & oral fluids were given to patient, "Discontinue UA" per Dr Macedo.
--- NOTE | 2017-12-10 12:55 | NUR ---
Patient discharged to home in stable conditon. Written and verbal after care instructions given to patient by MD himself. Patient verbalizes understanding of instructions. Copies of the tests results were provided as well.
== END 2017-12-10 12:56 | disposition home or self-care (01) ==
LOC: ER 11:43
DX: K80.20 Calculus of gallbladder without cholecystitis without obstruction (principal); R17 Unspecified jaundice; Z88.0 Allergy status to penicillin; Z90.49 Acquired absence of other specified parts of digestive tract
CPT/HCPCS: 36415; 83690; 85025; 87536; A4663

== ENCOUNTER 2018-08-29 04:15 | Emergency (ER) | payer OTHER ==
[~2018-08-29] VITALS: Ht 177.8 cm; Wt 95.3 kg
[2018-08-29] MEDS ORDERED: [UNRECOGNIZED DRUG - OTHER] PO (04:33)
[2018-08-29] MEDS ORDERED: [UNRECOGNIZED DRUG - CODE] IJ (04:33)
[2018-08-29] MEDS ORDERED: GABA-532 PO (04:33)
--- NOTE | 2018-08-29 04:36 | NUR ---
Pt ambulates to ER with c/o abdominal pain x 3 days. Pt states he had abdominal mesh surgery at [facility] on 08/01/[address] West. He also has a Brigido-Berry drain on his inguinal area present. Pt states he also has an appointment to see Dr. West this 08/30/18 however he is unable to tolerate the pain at this time. Pt denies any nausea/vomiting. He denies dysuria. He denies chest pain/shortness of breath. NSR on monitor. Respirations even + unlabored. VSS.
--- NOTE | 2018-08-29 04:43 | NUR ---
Dr. Remington MOHR MD at bedside for MSE.
[2018-08-29] MEDS ORDERED: ONDANSETRON 4 MG/2 ML VIAL ONE (04:49)
[2018-08-29] MEDS ORDERED: HYDROMORPHONE 2 MG/1 ML DISP.SYRIN ONE (04:49)
[2018-08-29] MEDS ORDERED: ONDANSETRON 4 MG/2 ML VIAL IM ONE (05:00)
[2018-08-29] MEDS ORDERED: HYDROMORPHONE 1 MG/1 ML DISP.SYRIN IV ONE ×4 (05:00→08:00)
[2018-08-29] MEDS ORDERED: HYDROMORPHONE 1 MG/1 ML DISP.SYRIN IM ONE (05:00)
[2018-08-29] MEDS ORDERED: IV NORMAL SALINE 1000 ML BAG IV ONE (05:00)
--- NOTE | 2018-08-29 05:20 | NUR ---
Xray at bedside.
[2018-08-29 05:33] LABS: BASOPHILS # (AUTO) 0.1 K/uL (0.0-8.0); BASOPHILS % (AUTO) 0.6 % (0.0-2.0); EOSINOPHILS # (AUTO) 0.4 K/uL (0.0-0.7); EOSINOPHILS % (AUTO) 4.7 % (0.0-7.0); HEMATOCRIT 33.4 % (36.7-47.1); HEMOGLOBIN 11.2 g/dL (12.5-16.3); LYMPHOCYTES # (AUTO) 1.7 K/uL (20.0-40.0); LYMPHOCYTES % (AUTO) 19.1 % (20.5-51.5); MEAN CORPUSCULAR HEMOGLOBIN 27.3 uug (23.8-33.4); MEAN CORPUSCULAR HGB CONC 34 g/dL (32.5-36.3); MEAN CORPUSCULAR VOLUME 81.1 fL (73.0-96.2); MONOCYTES # (AUTO) 0.9 K/uL (2.0-10.0); NEUTROPHILS # (AUTO) 5.9 K/uL (1.8-8.9); NEUTROPHILS % (AUTO) 65.6 % (38.5-71.5); PLATELET COUNT (AUTO) 453 K/uL (152-348); RED BLOOD CELL COUNT(AUTO) 4.12 MIL/uL (4.06-5.63); WHITE BLOOD COUNT (AUTO) 9.1 K/uL (3.6-10.2)
[2018-08-29] MEDS ORDERED: DICYCLOMINE HCL 10 MG/5 ML UDC LIQ ONE (05:38)
[2018-08-29] MEDS ORDERED: MAG HYDROX/AL HYDROX/SIMETH 30 ML LIQUID UDC ONE (05:38)
[2018-08-29 05:41] LABS: BILIRUBIN,DIRECT 0.2 mg/dL (0.0-0.2); BILIRUBIN,TOTAL 0.8 mg/dL (0.2-1.0); CREATININE 0.9 mg/dL (0.6-1.3); POTASSIUM 3.5 mmol/L (3.5-5.1); TOTAL PROTEIN, SERUM 7.9 g/dL (6.4-8.2)
[2018-08-29] MEDS ORDERED: DICYCLOMINE HCL 10 MG/5 ML UDC LIQ PO ONE (05:45)
[2018-08-29] MEDS ORDERED: MAG HYDROX/AL HYDROX/SIMETH 30 ML LIQUID UDC PO ONE (05:45)
--- NOTE | 2018-08-29 05:47 | NUR ---
Labs drawn, sent to lab. Chest xray done. Saline lock in place. Pain med given. IV fluids still infusing. Still waiting pt to provide urine sample. Pending traffic technician to arrive.
--- NOTE | 2018-08-29 05:59 | NUR ---
audio video technician at bedside.
[2018-08-29] MEDS ORDERED: HYDROMORPHONE 1 MG/1 ML DISP.SYRIN ONE ×3 (06:05→07:56)
--- NOTE | 2018-08-29 06:20 | NUR ---
Pt initially refused CT scan abdomen/pelvis, now requesting CT scan. aware.
--- NOTE | 2018-08-29 06:36 | NUR ---
Pt went down to radiology dept for CT scan.
--- NOTE | 2018-08-29 06:49 | NUR ---
Pt back from CT scan. VSS.
--- NOTE | 2018-08-29 07:11 | NUR ---
Report given to day shift nurses.
--- NOTE | 2018-08-29 07:35 | NUR ---
Call placed to Jesse Del Toro (SURGERY), ERMD spoke with him regarding patient's status.
--- NOTE | 2018-08-29 08:15 | NUR ---
Patient requested to remain in the room and to eat breakfast.
--- NOTE | 2018-08-29 08:50 | NUR ---
Patient requesting more medication, education provided regarding ERMD's discharge instructions.
[2018-08-29 08:51] LABS: *BILIRUBIN,URIN NEGATIVE (NEGATIVE); *BLOOD, URINE NEGATIVE (NEGATIVE); *CLARITY,URINE CLEAR (CLEAR); *COLOR,URINE YELLOW (YELLOW); *KETONES,URINE NEGATIVE (NEGATIVE); *PROTEIN,URINE NEGATIVE (NEGATIVE); *UROBILINOGEN,URINE 0.2 E.U./dl (NORMAL); LEUKOCYTE ESTERASE ,URINE NEGATIVE (NEGATIVE); NITRITE, URINE NEGATIVE (NEGATIVE); PH,URINE 5.5 (5.0-8.0); UGLUCOSE NEGATIVE (NEGATIVE)
[2018-08-29 08:59] LABS: BACTERIA,URINE NONE SEEN /HPF (NONE SEEN); RBC,URINE NONE SEEN /HPF (0-3); SQUAMOUS EPITHELIAL CELL,UR NONE SEEN /HPF (NONE SEEN); WBC,URINE NONE SEEN /HPF (0-3)
[2018-08-29] MEDS ORDERED: OXYCODONE/APAP 5-325 MG TABLET PO ONE (09:00)
[2018-08-29] MEDS ORDERED: OXYCODONE/APAP 5-325 MG TABLET ONE (09:02)
--- NOTE | 2018-08-29 09:18 | NUR ---
Patient discharged to home in stable conditon via taxi. Written and verbal after care instructions given. Patient verbalizes understanding of instructions.
== END 2018-08-29 09:23 | disposition home or self-care (01) ==
LOC: ER 04:19
DX: R10.32 Left lower quadrant pain (principal); Z88.1 Allergy status to other antibiotic agents; Z88.8 Allergy status to other drugs, medicaments and biological substances; Z90.49 Acquired absence of other specified parts of digestive tract
CPT/HCPCS: 36415; 71045; 74176; 76705; 80048; 80076; 81001; 83690; 84484; 85025; 85730; 87070; 87086; 96374; 96376; 99285; J1170 ×4; 70030-TC; A4663; J2405; J7030

== ENCOUNTER 2019-04-11 20:41 | Emergency (ER) | payer OTHER ==
[~2019-04-11] VITALS: Ht 177.8 cm; Wt 101.6 kg
[~2019-04-11 20:41] MED LIST changes: +GABA-532 PO; -IMODIUM; +[UNRECOGNIZED DRUG - OTHER] PO
--- NOTE | 2019-04-11 20:50 | NUR ---
Patient ambulated with stable gait. Speech clear, speaks in complete sentences. No neuro deficits. patient came for c/o epigastric pain. Respiratory even and unlabored, no cough no sob. Patient in bed at lowest position, sr upx2, call light within reach. Fall precautions implemented per protocol.
[2019-04-11] MEDS ORDERED: HYDROMORPHONE 2 MG/1 ML DISP.SYRIN ONE ×3 (21:11→22:59)
[2019-04-11] MEDS ORDERED: HYDROMORPHONE 1 MG/1 ML DISP.SYRIN IM ONE (21:15)
[2019-04-11] MEDS ORDERED: IV NORMAL SALINE 1000 ML BAG IV ONE (21:45)
[2019-04-11] MEDS ORDERED: HYDROMORPHONE 1 MG/1 ML DISP.SYRIN IV ONE ×3 (21:45→23:30)
[2019-04-11 22:01] LABS: BASOPHILS % (AUTO) 0.6 % (0.0-2.0); EOSINOPHILS # (AUTO) 0.3 K/uL (0.0-0.7); EOSINOPHILS % (AUTO) 3.4 % (0.0-7.0); HEMATOCRIT 39.7 % (36.7-47.1); LYMPHOCYTES # (AUTO) 2.2 K/uL (20.0-40.0); LYMPHOCYTES % (AUTO) 27.3 % (20.5-51.5); MEAN CORPUSCULAR HEMOGLOBIN 27.8 uug (23.8-33.4); MEAN CORPUSCULAR HGB CONC 35 g/dL (32.5-36.3); MEAN CORPUSCULAR VOLUME 78.8 fL (73.0-96.2); MONOCYTES # (AUTO) 0.7 K/uL (2.0-10.0); MONOCYTES % (AUTO) 8.2 % (0.0-11.0); NEUTROPHILS # (AUTO) 4.8 K/uL (1.8-8.9); NEUTROPHILS % (AUTO) 60.5 % (38.5-71.5); PLATELET COUNT (AUTO) 315 K/uL (152-348); RED BLOOD CELL COUNT(AUTO) 5.04 MIL/uL (4.06-5.63); WHITE BLOOD COUNT (AUTO) 7.9 K/uL (3.6-10.2)
[2019-04-11] MEDS ORDERED: IOHEXOL 300MG/ML 100 ML INFUS..BTL ONE (22:06)
[2019-04-11] MEDS ORDERED: IV NORMAL SALINE 250 ML IV ONE (22:06)
[2019-04-11] MEDS ORDERED: SWABABLE VALVE TRANSFER SET EA MC ONE (22:06)
[2019-04-11 22:08] LABS: CARBON DIOXIDE 28 mmol/L (21-32); CHLORIDE 107 mmol/L (98-107); CREATININE 0.7 mg/dL (0.6-1.3); GLUCOSE 95 mg/dL (74-106); POTASSIUM 2.9 mmol/L (3.5-5.1); UREA NITROGEN, BLOOD 12 mg/dL (7-18)
[2019-04-11 22:13] LABS: ALANINE AMINOTRANSFERASE 47 U/L (16-63); ALKALINE PHOSPHATASE 81 U/L (50-136); ASPARTATE AMINOTRANSFERASE 25 U/L (15-37); BILIRUBIN,TOTAL 5.1 mg/dL (0.2-1.0); LIPASE 208 U/L (73-393); TOTAL PROTEIN, SERUM 7.5 g/dL (6.4-8.2)
[2019-04-11] MEDS ORDERED: POTASSIUM CHLORIDE 20 MEQ TAB.PRT.SR PO ONE (22:15)
--- NOTE | 2019-04-11 22:17 | NUR ---
Patient transferred to CT in stable condition.
[2019-04-11] MEDS ORDERED: POTASSIUM CHLORIDE 20 MEQ TAB.PRT.SR ONE (22:20)
[2019-04-11] MEDS ORDERED: CEFTRIAXONE 1 G in IV DEXTROSE 5% 50 ML IV ONE (23:15)
[2019-04-11] MEDS ORDERED: CEFTRIAXONE 1 G VIAL ONE (23:22)
[2019-04-11] MEDS ORDERED: HYDROMORPHONE 1 MG/1 ML DISP.SYRIN ONE (23:28)
[2019-04-12] MEDS ORDERED: HYDROMORPHONE 1 MG/1 ML DISP.SYRIN ONE (00:28)
[2019-04-12] MEDS ORDERED: HYDROMORPHONE 1 MG/1 ML DISP.SYRIN IV ONE (00:30)
--- NOTE | 2019-04-12 00:49 | NUR ---
Patient discharged to home in stable conditon. Written and verbal after care instructions given. Patient verbalizes understanding of instructions. Instructed patient that he may not drive with the medication that was given. Taxi service is here and picked up the patient, in stable condition. Provided patient with labs and cd for imaging.
[2019-04-12 00:50] VITALS: BP 125/78
== END 2019-04-12 00:53 | disposition home or self-care (01) ==
LOC: ER 20:41
DX: R10.11 Right upper quadrant pain (principal); R10.31 Right lower quadrant pain; R10.32 Left lower quadrant pain; Z90.49 Acquired absence of other specified parts of digestive tract; Z88.1 Allergy status to other antibiotic agents; Z88.8 Allergy status to other drugs, medicaments and biological substances; Z79.899 Other long term (current) drug therapy
CPT/HCPCS: 36415; 74177; 76705; 80053; 83690; 85025; 96365; 96375; 96376; 99284; J0696; J1170 ×5; J7060; Q9967; A4663; J7050

== ENCOUNTER 2019-06-03 08:14 | Emergency (ER) | payer OTHER ==
[~2019-06-03] VITALS: Ht 177.8 cm; Wt 101.6 kg
--- NOTE | 2019-06-03 08:33 | NUR ---
Dr Venegas at the bedside for MSE.
[2019-06-03] MEDS ORDERED: HYDROMORPHONE 1 MG/1 ML DISP.SYRIN IV ONE ×3 (08:45→11:15)
[2019-06-03] MEDS ORDERED: IV NORMAL SALINE 500 ML BAG IV ONE (08:45)
[2019-06-03] MEDS ORDERED: SWABABLE VALVE TRANSFER SET EA MC ONE (08:50)
[2019-06-03] MEDS ORDERED: IV NORMAL SALINE 250 ML IV ONE (08:50)
[2019-06-03] MEDS ORDERED: IOHEXOL 300MG/ML 100 ML INFUS..BTL ONE (08:50)
[2019-06-03] MEDS ORDERED: HYDROMORPHONE 1 MG/1 ML DISP.SYRIN ONE ×3 (08:53→11:06)
[2019-06-03 08:58] LABS: BASOPHILS # (AUTO) 0.1 K/uL (0.0-8.0); EOSINOPHILS # (AUTO) 0.3 K/uL (0.0-0.7); EOSINOPHILS % (AUTO) 3.3 % (0.0-7.0); HEMATOCRIT 40.7 % (36.7-47.1); HEMOGLOBIN 14.4 g/dL (12.5-16.3); LYMPHOCYTES # (AUTO) 1.9 K/uL (20.0-40.0); LYMPHOCYTES % (AUTO) 23.8 % (20.5-51.5); MEAN CORPUSCULAR HEMOGLOBIN 29.3 uug (23.8-33.4); MEAN CORPUSCULAR HGB CONC 35 g/dL (32.5-36.3); MONOCYTES # (AUTO) 0.7 K/uL (2.0-10.0); MONOCYTES % (AUTO) 9.2 % (0.0-11.0); NEUTROPHILS # (AUTO) 4.9 K/uL (1.8-8.9); NEUTROPHILS % (AUTO) 62.7 % (38.5-71.5); PLATELET COUNT (AUTO) 300 K/uL (152-348); RED BLOOD CELL COUNT(AUTO) 4.91 MIL/uL (4.06-5.63); WHITE BLOOD COUNT (AUTO) 7.8 K/uL (3.6-10.2)
--- NOTE | 2019-06-03 09:00 | NUR ---
Pt signed consent for Contrast w/ CT.
[2019-06-03 09:23] LABS: CREATININE 0.9 mg/dL (0.6-1.3); POTASSIUM 3.6 mmol/L (3.5-5.1)
[2019-06-03 09:29] LABS: BILIRUBIN,DIRECT 0.2 mg/dL (0.0-0.2); BILIRUBIN,TOTAL 3.4 mg/dL (0.2-1.0); TOTAL PROTEIN, SERUM 7.4 g/dL (6.4-8.2)
[2019-06-03] MEDS ORDERED: DIATR MEGLU/DIATRIZOATE SODIUM 30 ML SOLUTION ONE (09:40)
--- NOTE | 2019-06-03 09:40 | NUR ---
Pt agreed to PO contast, started oral contrast now.
--- NOTE | 2019-06-03 09:51 | NUR ---
Pt sitting up in bed, speaking on the phone. NAD noted at this time.
--- NOTE | 2019-06-03 11:07 | NUR ---
Pt out of ER for CT.
--- NOTE | 2019-06-03 11:31 | NUR ---
Pt back from CT, resting in bed and speaking on the phone, NAD noted.
--- NOTE | 2019-06-03 12:13 | NUR ---
Dr Venegas spoke to Jesse Crabtree(GI surgeon).
--- NOTE | 2019-06-03 14:20 | NUR ---
Patient does not wish to proceed with medical care recommended by Dr. VENEGAS. Patient given information related to possible complications, up to and including , which could occur as a result of leaving the hospital at this time. Patient verbalizes understanding of risks involved due to leaving against medical advice. Patient has signed AMA form. Refusde to sign Dr Venegas made aware. Patient was threatening staff that he will become physical if we remove his IV. Per Dr Venegas patient can be dc with IV HL. Dr Venegas spoke with patient multiple times still dose not want to sign. [employer] was called and security to escort patient. Paient noted not in any distress. No SOB. No N/V.
[2019-06-03 14:31] LABS: *BILIRUBIN,URIN NEGATIVE (NEGATIVE); *BLOOD, URINE NEGATIVE (NEGATIVE); *CLARITY,URINE CLEAR (CLEAR); *COLOR,URINE YELLOW (YELLOW); *KETONES,URINE NEGATIVE (NEGATIVE); *UROBILINOGEN,URINE 0.2 E.U./dl (NORMAL); LEUKOCYTE ESTERASE ,URINE NEGATIVE (NEGATIVE); NITRITE, URINE NEGATIVE (NEGATIVE); UGLUCOSE NEGATIVE (NEGATIVE)
== END 2019-06-03 14:30 | disposition left against medical advice (07) ==
LOC: ER 08:14
DX: R10.9 Unspecified abdominal pain (principal); R11.10 Vomiting, unspecified; Z90.49 Acquired absence of other specified parts of digestive tract; Z88.1 Allergy status to other antibiotic agents; Z88.8 Allergy status to other drugs, medicaments and biological substances
CPT/HCPCS: 36415; 74177; 80048; 80076; 81001; 83690; 85025; 93005; 96361; 96374; 96376; 99284; J1170 ×3; Q9967; A4663; J7030; J7050; Q9963

== ENCOUNTER 2019-06-30 21:57 | Emergency (ER) | payer OTHER ==
[~2019-06-30] VITALS: Ht 175.3 cm; Wt 104.3 kg
--- NOTE | 2019-06-30 22:05 | NUR ---
Upon entering into the department the patient had a very steady gait. Once called from the ER waiting room patient suddenly was not able to ambulate very well and depended on the friend to be by his side to assist him in ambulation. Speech is clear, speaks in complete sentences. No neuro deficits. A/Ox4. Patient came for c/o back pain. PS 10/10. Respiratory even and unlabored no cough, no sob.
--- NOTE | 2019-06-30 22:08 | NUR ---
ERMD at bedside for MSE
[2019-06-30] MEDS ORDERED: KETOROLAC TROMETHAMINE 60 MG INJ IM ONE ×2 (22:15→22:17)
[2019-06-30] MEDS ORDERED: OXYCODONE/APAP 5-325 MG TABLET ONE (22:25)
[2019-06-30] MEDS ORDERED: GABAPENTIN 300 MG CAPSULE ONE (22:29)
[2019-06-30] MEDS ORDERED: OXYCODONE/APAP 5-325 MG TABLET PO ONE (22:30)
[2019-06-30] MEDS ORDERED: GABAPENTIN 300 MG CAPSULE PO ONE (22:30)
--- NOTE | 2019-06-30 22:33 | NUR ---
Patient discharged to home in stable conditon. Written and verbal after care instructions given. Patient verbalizes understanding of instructions. Patient ambulated with steady gait with friend assisting. Denied w/c when offered he stated, "no i will be okay, i have to walk". Instructed patient that he may not drive, friend will be driving him home. Upon leaving the department's front automatic door, patients ambulation drastically change and patient ambulated without limping or any distress.
[2019-06-30 22:39] VITALS: BP 118/75
== END 2019-06-30 22:40 | disposition home or self-care (01) ==
LOC: ER 21:57
DX: G89.29 Other chronic pain (principal); M54.5 Low back pain; Z90.49 Acquired absence of other specified parts of digestive tract; Z88.1 Allergy status to other antibiotic agents; Z88.8 Allergy status to other drugs, medicaments and biological substances
CPT/HCPCS: 96372; 99283; J1885; A4663

== ENCOUNTER 2019-07-01 12:53 | Emergency (ER) | payer OTHER ==
[~2019-07-01] VITALS: Ht 175.3 cm; Wt 104.3 kg
--- NOTE | 2019-07-01 13:00 | NUR ---
Dr. Lozano at bedside.
[2019-07-01] MEDS ORDERED: DEXAMETHASONE SOD PHOSPHATE 4 MG INJ IM ONE (13:15)
[2019-07-01] MEDS ORDERED: DEXAMETHASONE SOD PHOSPHATE 4 MG INJ ONE (13:21)
--- NOTE | 2019-07-01 13:36 | NUR ---
Patient was givend discharge instructions and prescription.
--- NOTE | 2019-07-01 13:43 | NUR ---
Dr. Lozano at bedside discussing treatment options.
--- NOTE | 2019-07-01 13:59 | NUR ---
Patient being taken to CT
--- NOTE | 2019-07-01 14:16 | NUR ---
Patient returned from CT scan.
[2019-07-01] MEDS ORDERED: KETOROLAC TROMETHAMINE 30 MG INJ IM ONE (14:45)
[2019-07-01] MEDS ORDERED: KETOROLAC TROMETHAMINE 30 MG INJ ONE (14:48)
[2019-07-01 14:59] VITALS: BP 124/74
--- NOTE | 2019-07-01 14:59 | NUR ---
Patient was given discharge instrutions and copy of ct scan and discharged.
== END 2019-07-01 14:59 | disposition home or self-care (01) ==
LOC: ER 12:53
DX: M54.42 Lumbago with sciatica, left side (principal); Z88.1 Allergy status to other antibiotic agents; Z88.8 Allergy status to other drugs, medicaments and biological substances; Z90.49 Acquired absence of other specified parts of digestive tract
CPT/HCPCS: 72131; 96372 ×2; 99284; J1100; J1885; A4663

== ENCOUNTER 2019-11-16 18:34 | Emergency (ER) | payer OTHER ==
[~2019-11-16] VITALS: Ht 177.8 cm; Wt 111.1 kg
[2019-11-16] MEDS ORDERED: MORPHINE SULFATE 4 MG/1 ML DISP.SYRIN IV ONE ×2 (18:45→19:30)
[2019-11-16] MEDS ORDERED: MORPHINE SULFATE 4 MG/1 ML DISP.SYRIN ONE ×2 (18:52→19:34)
[2019-11-16] MEDS ORDERED: DIAZEPAM 5 MG TABLET ONE (18:52)
[2019-11-16] MEDS ORDERED: LORAZEPAM 2 MG/1 ML VIAL ONE ×3 (18:55→21:10)
[2019-11-16] MEDS: DIAZEPAM 10 MG/2 ML DISP.SYRIN IV ONE ×2 (18:58→19:02)
[2019-11-16] MEDS ORDERED: LORAZEPAM 2 MG/1 ML VIAL IV ONE ×3 (19:00→21:15)
[2019-11-16 19:08] LABS: BASOPHILS % (AUTO) 0.3 % (0.0-2.0); EOSINOPHILS # (AUTO) 0.1 K/uL (0.0-0.7); EOSINOPHILS % (AUTO) 0.4 % (0.0-7.0); HEMATOCRIT 43.4 % (36.7-47.1); HEMOGLOBIN 15.1 g/dL (12.5-16.3); LYMPHOCYTES # (AUTO) 1.5 K/uL (20.0-40.0); LYMPHOCYTES % (AUTO) 9.6 % (20.5-51.5); MEAN CORPUSCULAR HEMOGLOBIN 29.2 uug (23.8-33.4); MEAN CORPUSCULAR HGB CONC 35 g/dL (32.5-36.3); MONOCYTES # (AUTO) 1.3 K/uL (2.0-10.0); MONOCYTES % (AUTO) 8.2 % (0.0-11.0); NEUTROPHILS # (AUTO) 13.1 K/uL (1.8-8.9); NEUTROPHILS % (AUTO) 81.5 % (38.5-71.5); PLATELET COUNT (AUTO) 283 K/uL (152-348); RED BLOOD CELL COUNT(AUTO) 5.17 MIL/uL (4.06-5.63); WHITE BLOOD COUNT (AUTO) 16.1 K/uL (3.6-10.2)
[2019-11-16 19:18] LABS: CREATININE 1.1 mg/dL (0.6-1.3); POTASSIUM 3.6 mmol/L (3.5-5.1)
[2019-11-16 19:19] LABS: BILIRUBIN,DIRECT 0.5 mg/dL (0.0-0.2); BILIRUBIN,TOTAL 5.7 mg/dL (0.1-1.0)
[2019-11-16 19:20] LABS: TOTAL PROTEIN, SERUM 8.8 g/dL (6.4-8.2)
[2019-11-16] MEDS ORDERED: SWABABLE VALVE TRANSFER SET EA MC ONE (19:45)
[2019-11-16] MEDS ORDERED: IOHEXOL 300MG/ML 100 ML INFUS..BTL ONE (19:45)
[2019-11-16] MEDS ORDERED: IV NORMAL SALINE 250 ML IV ONE (19:45)
[2019-11-16] MEDS ORDERED: KETOROLAC TROMETHAMINE 30 MG INJ ONE (21:10)
[2019-11-16] MEDS ORDERED: KETOROLAC TROMETHAMINE 30 MG INJ IVP ONE (21:15)
[2019-11-16] MEDS ORDERED: HYDROMORPHONE 1 MG/1 ML DISP.SYRIN IV ONE ×2 (21:30→22:45)
[2019-11-16] MEDS ORDERED: HYDROMORPHONE 1 MG/1 ML DISP.SYRIN ONE ×2 (21:34→22:49)
--- NOTE | 2019-11-16 22:17 | NUR ---
Spoke with returned case inspector, Marisela ([facility]), regarding pt status. Requested clinicals & face sheet to be faxed over at [phone]. Pt to be transferred to [facility].
--- NOTE | 2019-11-16 22:37 | NUR ---
Pt refuses to be transferred to [facility]. States he wants to be d/c home after pain medication. MD at bedside.
--- NOTE | 2019-11-16 23:24 | NUR ---
Patient discharged to home in stable conditon. Written and verbal after care instructions given. Patient verbalizes understanding of instructions. Pt left ER in stable condition via wheelchair with his cousin who will drive him home. No acute distress noted. Vital signs stable.
[2019-11-16 23:25] VITALS: BP 123/72
== END 2019-11-16 23:26 | disposition home or self-care (01) ==
LOC: ER 18:34
DX: R10.9 Unspecified abdominal pain (principal); R07.9 Chest pain, unspecified; M54.9 Dorsalgia, unspecified; M25.511 Pain in right shoulder; Z90.49 Acquired absence of other specified parts of digestive tract; Z88.1 Allergy status to other antibiotic agents; Z88.8 Allergy status to other drugs, medicaments and biological substances
CPT/HCPCS: 36415; 71045; 71260; 74177; 80048; 80076; 83690; 85025; 93005; 96374; 96375; 96376; 99284; J1170 ×2; J1885; J2060 ×3; J2270 ×2; J3360; Q9967; A4663; J7050

== ENCOUNTER 2020-03-12 21:30 | Emergency (ER) | payer OTHER ==
[~2020-03-12] VITALS: Ht 177.8 cm; Wt 116.1 kg
--- NOTE | 2020-03-12 21:45 | NUR ---
Dr. Macedo at bedside for MSE
[2020-03-12] MEDS ORDERED: HYDROMORPHONE 1 MG/1 ML DISP.SYRIN IM ONE ×2 (22:00→23:00)
[2020-03-12] MEDS ORDERED: HYDROMORPHONE 2 MG/1 ML DISP.SYRIN ONE ×2 (22:06→23:04)
--- NOTE | 2020-03-12 23:10 | NUR ---
Patient discharged to home in stable condition. Written and verbal after care instructions given. Patient verbalizes understanding of instructions. Stressed follow up or return to ER for worsening s/s. patient ambulating with steady gait. Instructed patient not to drive. Patient's friend outside of ED waiting in car.
[2020-03-13 00:30] VITALS: BP 122/73
== END 2020-03-12 23:10 | disposition home or self-care (01) ==
LOC: ER 21:34
DX: R10.32 Left lower quadrant pain (principal); L05.91 Pilonidal cyst without abscess; Z90.49 Acquired absence of other specified parts of digestive tract
CPT/HCPCS: 74176; 96372 ×2; 99284; J1170 ×2; A4663

== ENCOUNTER 2020-06-16 18:06 | Inpatient (IN) | payer OTHER ==
[~2020-06-16] VITALS: Ht 177.8 cm; Wt 116.1 kg
[2020-06-16] MEDS ORDERED: ONDANSETRON 4 MG/2 ML VIAL IV ONE ×3 (18:45→22:00)
[2020-06-16] MEDS ORDERED: HYDROMORPHONE 1 MG/1 ML DISP.SYRIN IV ONE ×3 (18:45→22:00)
[2020-06-16] MEDS ORDERED: IV NORMAL SALINE 1000 ML BAG IV ONE (18:45)
[2020-06-16] MEDS ORDERED: ONDANSETRON 4 MG/2 ML VIAL ONE ×3 (18:58→21:59)
[2020-06-16] MEDS ORDERED: HYDROMORPHONE 2 MG/1 ML DISP.SYRIN ONE ×2 (18:58→20:30)
--- NOTE | 2020-06-16 19:06 | NUR ---
PATIENT HERE FOR PAIN. IV PLACED, EKG DONE, MEDS GIVEN ORDERED. HAND OFF REPORT GIVEN TO JENNIFER
--- NOTE | 2020-06-16 19:10 | NUR ---
Received report from VICTORINO Mendez pt in bed, aa/ox4. able to speak in complete sentences respirations even and unlabored no s/s of distress safety precautions in place. bed locked, lowest position. instructed pt to call nurse for assistance will continue to monitor
[2020-06-16 19:25] LABS: BASOPHILS # (AUTO) 0.1 K/uL (0.0-8.0); BASOPHILS % (AUTO) 0.8 % (0.0-2.0); BILIRUBIN,DIRECT 0.4 mg/dL (0.0-0.2); BILIRUBIN,TOTAL 6.1 mg/dL (0.2-1.0); CREATININE 1.1 mg/dL (0.6-1.3); EOSINOPHILS # (AUTO) 0.2 K/uL (0.0-0.7); EOSINOPHILS % (AUTO) 1.9 % (0.0-7.0); HEMATOCRIT 40.9 % (36.7-47.1); HEMOGLOBIN 14.5 g/dL (12.5-16.3); LYMPHOCYTES # (AUTO) 1.8 K/uL (20.0-40.0); LYMPHOCYTES % (AUTO) 19.9 % (20.5-51.5); MEAN CORPUSCULAR HEMOGLOBIN 28.8 uug (23.8-33.4); MEAN CORPUSCULAR HGB CONC 35 g/dL (32.5-36.3); MEAN CORPUSCULAR VOLUME 81.5 fL (73.0-96.2); MONOCYTES # (AUTO) 0.8 K/uL (2.0-10.0); MONOCYTES % (AUTO) 9.1 % (0.0-11.0); NEUTROPHILS # (AUTO) 6.2 K/uL (1.8-8.9); NEUTROPHILS % (AUTO) 68.3 % (38.5-71.5); PLATELET COUNT (AUTO) 330 K/uL (152-348); POTASSIUM 3.6 mmol/L (3.5-5.1); RED BLOOD CELL COUNT(AUTO) 5.02 MIL/uL (4.06-5.63); TOTAL PROTEIN, SERUM 7.3 g/dL (6.4-8.2); WHITE BLOOD COUNT (AUTO) 9.1 K/uL (3.6-10.2)
--- NOTE | 2020-06-16 20:28 | NUR ---
Dr. Macedo on panel call with Dr. Navarro
--- NOTE | 2020-06-16 20:43 | NUR ---
Called for bed. M/S 301
[2020-06-16] MEDS ORDERED: ACETAMINOPHEN 325 MG TABLET PO PRN (20:45)
[2020-06-16] MEDS ORDERED: ONDANSETRON 4 MG/2 ML VIAL IV PRN (20:45)
[2020-06-16] MEDS ORDERED: CARISOPRODOL 350 MG TABLET PO PRN (20:45)
--- NOTE | 2020-06-16 21:47 | NUR ---
Report given to VICTORINO Bliss
[2020-06-16] MEDS ORDERED: HYDROMORPHONE 1 MG/1 ML DISP.SYRIN ONE (21:59)
[2020-06-16] MEDS: DOCUSATE SODIUM 100 MG CAPSULE PO SCH ×2 (22:00→23:12)
--- NOTE | 2020-06-16 22:18 | NUR ---
Pt. admitted to [facility] Room 301 , under care of Dr. Navarro Belongs List completed. All belongings with pt aa/ox4. able to speak in complete sentences respirations even and unlabored no s/s of distress ambulatory transported pt via gurney
--- NOTE | 2020-06-16 22:20 | NUR ---
ADMITTED IN TELE FLOOR UNDER THE CARE OF DR. JASMINE. PATIENT ALERT ORIENTED, NO SOB NO CHEST PAIN, HAD LOWER BACK PAIN, AND PATIENT HAS MULTIPLE ABDOMINAL SCAR DUE TO MULTIPLE SURGERIES. PATIENT APPEARS HAS ANXIETY, AND RESTLESSNESS, REQUEST FOR SHOWER, ASSISTED WITH SHOWERS, CONT TO MONITOR.
[2020-06-16 23:00] VITALS: BP 110/79
--- NOTE | 2020-06-16 23:00 | NUR ---
PATIENT HAD EPISODE OF VOMITING UNDIGESTED FOOD BOUGHT OUTSIDE, INSTRUCTED PATIENT TO STOP EATING OR DRINKING AT THIS TIME, BUT PATIENT UNCOOPERATIVE WITH CARE CONT TO DRINK FLUIDS, AND WANTED APPLE JUICE.
--- NOTE | 2020-06-16 23:57 | NUR ---
PATIENT HAS LOTS OF ANXIETY, PACING IN HIS ROOM, MULTIPLE REQUEST, NOTIFY DR. JASMINE WITH ORDER OF VALIUM 10MG PO Q8HRS NEEDED, AND D/C [facility].
[2020-06-17] MEDS ORDERED: DIAZEPAM 10 MG TABLET PO PRN
[2020-06-17] MEDS: MORPHINE SULFATE 2 MG/1 ML DISP.SYRIN IV PRN ×3 (00:56→08:18)
--- NOTE | 2020-06-17 00:56 | NUR ---
Patient given 2 mg morphine iv only, patient request 2mg at this time.
[2020-06-17 04:00] VITALS: BP 110/68
--- NOTE | 2020-06-17 06:06 | NUR ---
Patient alert oriented, no sob no chest pain, cont on pain management due to complain of lower back, and unable to ambulate due to shooting pain in the back. Patient requesting epidural shot, will endorse in the morning RN regarding request. Patient non compliant with medication, cont to monitor.
[2020-06-17 06:57] LABS: BASOPHILS # (AUTO) 0.1 K/uL (0.0-8.0); BASOPHILS % (AUTO) 0.8 % (0.0-2.0); EOSINOPHILS # (AUTO) 0.2 K/uL (0.0-0.7); EOSINOPHILS % (AUTO) 3.3 % (0.0-7.0); HEMATOCRIT 39.2 % (36.7-47.1); HEMOGLOBIN 13.9 g/dL (12.5-16.3); LYMPHOCYTES # (AUTO) 1.8 K/uL (20.0-40.0); LYMPHOCYTES % (AUTO) 26.4 % (20.5-51.5); MEAN CORPUSCULAR HEMOGLOBIN 29.2 uug (23.8-33.4); MEAN CORPUSCULAR HGB CONC 36 g/dL (32.5-36.3); MEAN CORPUSCULAR VOLUME 82.2 fL (73.0-96.2); MONOCYTES # (AUTO) 0.7 K/uL (2.0-10.0); MONOCYTES % (AUTO) 10.6 % (0.0-11.0); NEUTROPHILS # (AUTO) 4.1 K/uL (1.8-8.9); NEUTROPHILS % (AUTO) 58.9 % (38.5-71.5); PLATELET COUNT (AUTO) 280 K/uL (152-348); RED BLOOD CELL COUNT(AUTO) 4.77 MIL/uL (4.06-5.63); WHITE BLOOD COUNT (AUTO) 6.9 K/uL (3.6-10.2)
[2020-06-17 07:06] LABS: BILIRUBIN,TOTAL 6.2 mg/dL (0.2-1.0); CREATININE 1.1 mg/dL (0.6-1.3); MAGNESIUM 1.9 mg/dL (1.8-2.4); PHOSPHOROUS 3.8 mg/dL (2.5-4.9); POTASSIUM 3.7 mmol/L (3.5-5.1); TOTAL PROTEIN, SERUM 6.9 g/dL (6.4-8.2)
[2020-06-17] MEDS: PANTOPRAZOLE SODIUM 40 MG TABLET.DR PO SCH (07:09)
[2020-06-17 08:29] VITALS: BP 127/76
[2020-06-17] MEDS ORDERED: HYDROMORPHONE 2 MG/1 ML DISP.SYRIN IV PRN (10:30)
[2020-06-17] MEDS: HYDROMORPHONE 1 MG/1 ML DISP.SYRIN IV PRN ×4 (11:32→23:32)
[2020-06-17 11:56] VITALS: BP 134/86
[2020-06-17] MEDS ORDERED: methylPREDNISolone 1 PACK TAB.DS.PK [4MG TAB] PO ONE (16:00)
[2020-06-17] MEDS ORDERED: methylPREDNISolone 4 MG TABLET (DAY#1) PO ONE (16:15)
[2020-06-17 16:37] VITALS: BP 133/80
[2020-06-17] MEDS ORDERED: methylPREDNISolone 4 MG TABLET (DAY#1, BEFORE DINNER) PO ONE (17:30)
[2020-06-17 19:58] VITALS: BP 103/58
[2020-06-17] MEDS: methylPREDNISolone 4 MG TABLET (DAY#1, HS) PO ONE ×2 (20:00→20:11)
[2020-06-17] MEDS: DOCUSATE SODIUM 100 MG CAPSULE PO SCH ×2 (20:01→20:11)
--- NOTE | 2020-06-17 20:02 | NUR ---
patient c/o of pain and RN went to room to administer Dilaudid 1mg prn every 4 hours due at this time. patient was yelling at RN that he was in a lot of pain and pain management doctor never came to see him. it was explained to the patient with SUNITHA Lam in the room that pain management doctor will most likely come and see him tomorrow as ordered were placed today. patient continued to yell at RN about why he is unable to have visitors at the hospital, RN was not doing anything to help with the pain, and complaining that nothing was relieving the pain as well.
--- NOTE | 2020-06-17 20:20 | NUR ---
patient asking for sweet drinks. orange juice provided and patient c/o of having stomach acid and too acid for him. prune juice provided and patient accepted. Addendum: 06/18/20 at 0418 by MIGUELINA DOMINIQUE RN patient reported to RN that he did not want to take any stool softeners tonight because he is having diarrhea. however despite education about prune juice. he reported, "i dont care, give it to me now."
--- NOTE | 2020-06-17 20:29 | NUR ---
RN tried to administer Elavil. patient yelled at RN and reported, "are you trying to knock me out with that medication?" educated patient that this is the medication that Dr. Gonzalez ordered for neuropathy and insomnia. patient shouted, "its for something else not what you are saying it is for." patient took out phone and googled information on elavil. decided to take medication after a few minutes.
[2020-06-17] MEDS ORDERED: AMITRIPTYLINE HCL 10 MG TABLET PO SCH (21:00)
--- NOTE | 2020-06-17 21:27 | NUR ---
kirsty werner np contacted for patients c/o of pain and unable to get relief from prn dilaudid on eMAR. orders for Dilaudid 2mg x1 IVP to administer now.
[2020-06-17] MEDS ORDERED: HYDROMORPHONE 2 MG/1 ML DISP.SYRIN IV ONE (21:30)
--- NOTE | 2020-06-17 21:33 | NUR ---
patient refused colace and methylprednisone tonight despite education. [facility] Addendum: 06/18/20 at 0406 by MIGUELINA DOMINIQUE RN patient reporting to RN that he is having diarrhea and informed nurse that, " I will not take that shit whatever it is called that damn steroid."
--- NOTE | 2020-06-17 21:44 | NUR ---
RN went into patients room to administer Dilaudid after administration. patient shouted and had complaint to RN that all of the Dilaudid was not administered to him. RN showed patient the syringe and patient agreed that it was all administered.
--- NOTE | 2020-06-17 23:32 | NUR ---
kirsty werner np ordered okay to give dilaudid 1mg prn dose 30 minutes early. administered. tolerated well. will continue to monitor.
--- NOTE | 2020-06-17 23:40 | NUR ---
patient informed at beginning of shift not to leave room without informing RN as he wandered off in the day time and commissioned security officer had found him. RN received phone call from security reporting patient wandering in the lobby waiting for sister to drop off food.
--- NOTE | 2020-06-17 23:45 | NUR ---
PROGRESSIVE CARE NURSE went downstairs with wheelchair to cigar packer and picker patient and bring back safely to room. patient is sitting in room with boxes of food and eating on his bed.
--- NOTE | 2020-06-18 | NUR ---
Roya werner np order patient to have neurontin 150mg po bid and lyrica PO. Patient refused to take any pain medication by mouth as he is throwing up only would like pain meds by IVP.
--- NOTE | 2020-06-18 00:01 | NUR ---
RN witnessed 6 empty cartons of orange juiced provided to patient throughout shift and empty boxes of food that was dropped off by patients sister. no c/o of nausea or vomiting. however patient reporting that he is refusing an PO pain medications ordered at this time by nurse practitioner Roya Townsend for Neurontin or Lyrica PO. patient also reporting that only IV pain medication is working for him. Addendum: 06/18/20 at 0313 by MIGUELINA DOMINIQUE RN correction: patient report that he is refusing PO pain medication because he threw up.
--- NOTE | 2020-06-18 01:35 | NUR ---
patient c/o of pain 10/10 and yelling at staff members on the floor. albert martinez np contacted and Dilaudid 1mg IVP ordered x1.
[2020-06-18] MEDS ORDERED: HYDROMORPHONE 1 MG/1 ML DISP.SYRIN IV ONE ×2 (01:45→15:15)
--- NOTE | 2020-06-18 01:56 | NUR ---
patient is shouting to staff and upscale security officer that he needs a shower and some socks. currently provided with shower. towels, shower gel, socks, next to shower.
--- NOTE | 2020-06-18 02:01 | NUR ---
patient came out of shower and started screaming and yelling for the nurse. RN ask patient to wait while she grabbed gloves to put on and patient was cussing down the hallways dragging his feet with the towel on the floor. wheelchair was provided for patient safety and patient was safely wheeled to his room. While BUTTON MAKER provided socks for the patient.
--- NOTE | 2020-06-18 02:05 | NUR ---
patient asking for something sweet "like chocolate." informed patient that cafeteria is closed. specifically a biscuit was asked for and it was explained to patient that we are unable to provide him with this. provided patient with orange juice, jello, maximo crackers, and saline crackers with hot water.
--- NOTE | 2020-06-18 02:13 | NUR ---
dilaudid 1mg x1 IVP administered for patient complaints of pain. patient again yelling at RN about his pain and c/o of his pain management doctor not consulting him yesterday. explained and educated patient again that he is going to have to wait until tomorrow morning.
[2020-06-18] MEDS: PANTOPRAZOLE SODIUM 40 MG TABLET.DR PO SCH (07:22)
[2020-06-18] MEDS: HYDROMORPHONE 1 MG/1 ML DISP.SYRIN IV PRN ×2 (07:26→11:27)
[2020-06-18 07:30] VITALS: BP 168/91
[2020-06-18] MEDS ORDERED: methylPREDNISolone 4 MG TABLET (DAY#2, ACB) PO ONE (07:30)
--- NOTE | 2020-06-18 07:38 | NUR ---
Patient is alert, oriented x4, no sob,resp even nonlabored,skin warm and dry to touch, patient just received his pain medication, will continue to monitor,no acute distress noted
--- NOTE | 2020-06-18 10:01 | NUR ---
spoke to dr sosa for pain management consult, per dr sosa he will be here before noon, patient made aware
[2020-06-18 11:00] VITALS: BP 146/70
[2020-06-18] MEDS ORDERED: KETOROLAC TROMETHAMINE 30 MG INJ IVP SCH (11:30)
[2020-06-18] MEDS ORDERED: OXYCODONE/APAP 5-325 MG TABLET PO PRN (12:00)
[2020-06-18] MEDS: CYCLOBENZAPRINE HCL 10 MG TABLET PO SCH ×2 (12:00→12:28)
[2020-06-18 12:04] LABS: BILIRUBIN,DIRECT 0.4 mg/dL (0.0-0.2); BILIRUBIN,TOTAL 5.7 mg/dL (0.2-1.0); TOTAL PROTEIN, SERUM 7.9 g/dL (6.4-8.2)
[2020-06-18] MEDS ORDERED: methylPREDNISolone 4 MG TABLET (DAY#2, PC LUNCH) PO ONE (12:30)
--- NOTE | 2020-06-18 14:00 | NUR ---
patient yells and screaming,very demanding, uses inappropriate language to staff, pain is being managed with pain medications, examined by pain management doctor José.
--- NOTE | 2020-06-18 15:50 | NUR ---
patient alert, oriented x4, verbally responsive, no sob, resp even nonlabored, skin warm and dry to touch, no skin issues noted, IV and ID band removed, prescription given to patient,discharged patient home in uber, uber ordered by patient himself, no skin issues noted, no distress noted, patient ambulatory, independent with adls, patient denied any dizziness, discharge instructions given to patient, patient talked to case fitter on duty name Mary, and discussed about his outpatient pain management follow up. patient verbalized understanding of discharge instructions. escorted patient to the uber safely by nurse commercial escrow assistant. Addendum: 06/18/20 at 1710 by JAMEL FOLEY RN, RN patient discharged at 1350 and belongings accounted and signed.
[2020-06-18] MEDS ORDERED: methylPREDNISolone 4 MG TABLET (DAY#2, PC DINNER) PO ONE (17:30)
[2020-06-18] MEDS ORDERED: methylPREDNISolone 4 MG TABLET (DAY#2, HS) PO ONE (21:00)
[2020-06-19] MEDS ORDERED: methylPREDNISolone 4 MG TABLET (DAY#3, ACB) PO ONE (07:30)
[2020-06-19] MEDS ORDERED: methylPREDNISolone 4 MG TABLET (DAY#3, PC LUNCH) PO ONE (12:30)
[2020-06-19] MEDS ORDERED: methylPREDNISolone 4 MG TABLET (DAY#3, PC DINNER) PO ONE (17:30)
[2020-06-19] MEDS ORDERED: methylPREDNISolone 4 MG TABLET (DAY#3, HS) PO ONE (21:00)
[2020-06-20] MEDS ORDERED: methylPREDNISolone 4 MG TABLET (DAY#4, ACB) PO ONE (07:30)
[2020-06-20] MEDS ORDERED: methylPREDNISolone 4 MG TABLET (DAY#4, PC LUNCH) PO ONE (12:30)
[2020-06-20] MEDS ORDERED: methylPREDNISolone 4 MG TABLET (DAY#4, HS) PO ONE (21:00)
[2020-06-21] MEDS ORDERED: methylPREDNISolone 4 MG TABLET (DAY#5, ACB) PO ONE (07:30)
[2020-06-21] MEDS ORDERED: methylPREDNISolone 4 MG TABLET (DAY#5, HS) PO ONE (21:00)
[2020-06-22] MEDS ORDERED: methylPREDNISolone 4 MG TABLET (DAY#6, ACB) PO ONE (07:30)
== END 2020-06-18 15:50 | disposition home or self-care (01) | DRG 347 ==
LOC: ER 18:06 → MEDSURG3 21:48
PROVIDERS: ADMIT Nurse Practitioner Acute Care; ATTEND Nurse Practitioner Acute Care
DX: M47.26 Other spondylosis with radiculopathy, lumbar region (principal); M62.830 Muscle spasm of back; E66.9 Obesity, unspecified; Z68.36 Body mass index [BMI] 36.0-36.9, adult; F41.9 Anxiety disorder, unspecified; G62.9 Polyneuropathy, unspecified; G47.00 Insomnia, unspecified; Z79.891 Long term (current) use of opiate analgesic; G89.4 Chronic pain syndrome; Z93.3 Colostomy status; M51.16 Intervertebral disc disorders with radiculopathy, lumbar region
CPT/HCPCS: 36415; 70030-TC; 71045; 83550; 83690; 83735; 84100; 85025; 85730; 93005; A4663; G0378; J1170; J1885; J2270; J2405; J7030; J7509

== ENCOUNTER 2020-10-11 20:08 | Inpatient (IN) | payer OTHER ==
[~2020-10-11] VITALS: Ht 177.8 cm; Wt 98.4 kg
--- NOTE | 2020-10-11 20:12 | NUR ---
Patient brought in via [facility] for abdominal pain, patient noted ambulating
[2020-10-11] MEDS ORDERED: ONDANSETRON 4 MG/2 ML VIAL IV ONE ×2 (20:15→21:45)
[2020-10-11] MEDS ORDERED: HYDROMORPHONE 1 MG/1 ML DISP.SYRIN IV ONE ×3 (20:15→23:15)
[2020-10-11] MEDS ORDERED: IV NORMAL SALINE 1000 ML BAG IV ONE (20:15)
[2020-10-11] MEDS ORDERED: ONDANSETRON 4 MG/2 ML VIAL ONE ×2 (20:31→21:49)
[2020-10-11] MEDS ORDERED: HYDROMORPHONE 2 MG/1 ML DISP.SYRIN ONE ×3 (20:31→23:19)
--- NOTE | 2020-10-11 21:04 | NUR ---
Patient taken to CT at this time
[2020-10-11 21:05] LABS: BASOPHILS # (AUTO) 0.1 K/uL (0.0-8.0); BASOPHILS % (AUTO) 0.5 % (0.0-2.0); EOSINOPHILS # (AUTO) 0.3 K/uL (0.0-0.7); HEMATOCRIT 44.1 % (36.7-47.1); HEMOGLOBIN 15.5 g/dL (12.5-16.3); LYMPHOCYTES # (AUTO) 2.1 K/uL (20.0-40.0); LYMPHOCYTES % (AUTO) 16.1 % (20.5-51.5); MEAN CORPUSCULAR HEMOGLOBIN 28.3 uug (23.8-33.4); MEAN CORPUSCULAR HGB CONC 35 g/dL (32.5-36.3); MEAN CORPUSCULAR VOLUME 80.6 fL (73.0-96.2); MONOCYTES # (AUTO) 1.1 K/uL (2.0-10.0); MONOCYTES % (AUTO) 8.5 % (0.0-11.0); NEUTROPHILS # (AUTO) 9.5 K/uL (1.8-8.9); NEUTROPHILS % (AUTO) 72.9 % (38.5-71.5); PLATELET COUNT (AUTO) 300 K/uL (152-348); RED BLOOD CELL COUNT(AUTO) 5.47 MIL/uL (4.06-5.63)
[2020-10-11 21:09] LABS: BILIRUBIN,DIRECT 0.3 mg/dL (0.0-0.2); BILIRUBIN,TOTAL 5.1 mg/dL (0.2-1.0); CREATININE 0.8 mg/dL (0.6-1.3); POTASSIUM 3.7 mmol/L (3.5-5.1)
[2020-10-11] MEDS ORDERED: OMEP40CA13 PO (22:14)
--- NOTE | 2020-10-11 22:16 | NUR ---
MD West called, unable to leave message due to full inbox
[2020-10-11] MEDS ORDERED: IV NS 1000 ML 1,000 ML IV PRN (22:30)
[2020-10-11] MEDS ORDERED: Z GUARD REMEDY PASTE 57 GM TUBE TOP PRN (22:30)
[2020-10-11] MEDS ORDERED: ACETAMINOPHEN 325 MG TABLET PO PRN (22:30)
[2020-10-11] MEDS ORDERED: MAGNESIUM HYDROXIDE 30 ML LIQUID UDC PO PRN (22:30)
[2020-10-11] MEDS ORDERED: ONDANSETRON 4 MG/2 ML VIAL IV PRN (22:30)
[2020-10-11] MEDS ORDERED: HYDROCODONE/APAP 5-325MG TABLET PO PRN (22:30)
[2020-10-11] MEDS ORDERED: diphenhydrAMINE 50 MG/1 ML VIAL IV ONE (23:15)
[2020-10-11] MEDS ORDERED: diphenhydrAMINE 50 MG/1 ML VIAL ONE (23:19)
[2020-10-11 23:37] LABS: *BLOOD, URINE NEGATIVE (NEGATIVE); *CLARITY,URINE CLEAR (CLEAR); *COLOR,URINE YELLOW (YELLOW); *KETONES,URINE NEGATIVE (NEGATIVE); *UROBILINOGEN,URINE 0.2 E.U./dl (NORMAL); LEUKOCYTE ESTERASE ,URINE NEGATIVE (NEGATIVE); NITRITE, URINE NEGATIVE (NEGATIVE); UGLUCOSE NEGATIVE (NEGATIVE)
[2020-10-11 23:44] LABS: *BILIRUBIN,URIN 1+ (NEGATIVE)
--- NOTE | 2020-10-11 23:44 | NUR ---
report given tot Will RN
[2020-10-11 23:47] LABS: BACTERIA,URINE NONE SEEN /HPF (NONE SEEN); RBC,URINE 0-3 /HPF (0-3); SQUAMOUS EPITHELIAL CELL,UR FEW /HPF (NONE SEEN); WBC,URINE 0-3 /HPF (0-3)
[2020-10-12] MEDS ORDERED: PIPERACILLIN SODIUM/TAZOBACTAM 3.375 G in IV DEXTROSE 5% 50 ML IV SCH ×2
--- NOTE | 2020-10-12 00:15 | NUR ---
PATIENT ADMITTED ON MED SURG FLOOR UNDER THE CARE OF ISADORA MEI NP. PATIENT ALERT ORIENTED, NO SOB NO CHEST PAIN. PATIENT COMPLAIN OF ITCHING GIVEN BENADRYL FROM ER, CONTINUE TO MONITOR.
--- NOTE | 2020-10-12 00:35 | NUR ---
Pt. admitted to [facility] , under care of CUSTOMER SERVICE ASSOCIATE Roya Griffin Belongs List completed and all belongings sent with patient
[2020-10-12 01:07] VITALS: BP 112/78
--- NOTE | 2020-10-12 01:49 | NUR ---
NOTIFY DR. CASTRO THAT PATIENT ALLERGIC TO PCN, ZOSYN IV WAS CHANGE TO LEVAQUIN 500MG IV Q 24.
[2020-10-12] MEDS: HYDROMORPHONE 1 MG/1 ML DISP.SYRIN IV PRN ×5 (03:17→22:04)
[2020-10-12] MEDS ORDERED: levoFLOXacin 500 MG/D5W 100 ML ONE (03:23)
[2020-10-12] MEDS: levoFLOXacin 500 MG/D5W 500 MG in PREMIXED 1 EACH IV SCH (03:29)
[2020-10-12 04:00] VITALS: BP 113/76
--- NOTE | 2020-10-12 06:29 | NUR ---
PATIENT ALERT ORIENTED, PATIENT UNCOOPERATIVE WITH NPO, WANTS TO DRINK FLUIDS AND JUICES, PATIENT HAS EPISODE OF REFUSING IV INFUSION, PREFER TO STAY ASLEEP. WILL CONT TO ENCOURAGE, PATIENT ABDOMEN TENDER TO TOUCH, CONT ON PAIN MANAGEMENT. CONT TO MONITOR.
[2020-10-12 06:47] LABS: BASOPHILS # (AUTO) 0.1 K/uL (0.0-8.0); BASOPHILS % (AUTO) 0.8 % (0.0-2.0); EOSINOPHILS # (AUTO) 0.2 K/uL (0.0-0.7); EOSINOPHILS % (AUTO) 3.2 % (0.0-7.0); HEMATOCRIT 40.6 % (36.7-47.1); HEMOGLOBIN 14.5 g/dL (12.5-16.3); LYMPHOCYTES # (AUTO) 1.5 K/uL (20.0-40.0); LYMPHOCYTES % (AUTO) 22.7 % (20.5-51.5); MEAN CORPUSCULAR HGB CONC 36 g/dL (32.5-36.3); MEAN CORPUSCULAR VOLUME 81.2 fL (73.0-96.2); MONOCYTES # (AUTO) 0.8 K/uL (2.0-10.0); MONOCYTES % (AUTO) 11.5 % (0.0-11.0); NEUTROPHILS # (AUTO) 4.2 K/uL (1.8-8.9); NEUTROPHILS % (AUTO) 61.8 % (38.5-71.5); PLATELET COUNT (AUTO) 270 K/uL (152-348); RED BLOOD CELL COUNT(AUTO) 4.99 MIL/uL (4.06-5.63); WHITE BLOOD COUNT (AUTO) 6.8 K/uL (3.6-10.2)
[2020-10-12] MEDS ORDERED: PANTOPRAZOLE SODIUM 40 MG TABLET.DR PO SCH (07:00)
--- NOTE | 2020-10-12 07:05 | NUR ---
Received patient asleep in bed, no s/s of acute distress. bed in lowest position, side rails upx2, call light within reach, will continue to monitor.
[2020-10-12 07:10] LABS: MAGNESIUM 1.9 mg/dL (1.8-2.4); PHOSPHOROUS 3.3 mg/dL (2.5-4.9); POTASSIUM 3.5 mmol/L (3.5-5.1)
[2020-10-12] MEDS ORDERED: FAMOTIDINE. 20 MG/2 ML VIAL IV SCH (09:10)
[2020-10-12] MEDS ORDERED: ONDANSETRON 4 MG/2 ML VIAL IV PRN (09:15)
[2020-10-12] MEDS ORDERED: POTASSIUM CHLORIDE 20 MEQ in IV D5/ 0.9% NACL 1,000 ML IV PRN (09:15)
[2020-10-12] MEDS ORDERED: ACETAMINOPHEN 650 MG SUPP.RECT RC PRN (09:15)
[2020-10-12] MEDS ORDERED: HYDROMORPHONE 1 MG/1 ML DISP.SYRIN IV ONE ×2 (11:00→17:30)
[2020-10-12] MEDS ORDERED: DIATR MEGLU/DIATRIZOATE SODIUM 30 ML BOTTLE ONE (11:37)
[2020-10-12 12:00] VITALS: BP 109/65
[2020-10-12 16:00] VITALS: BP 106/68
--- NOTE | 2020-10-12 18:08 | NUR ---
Patient A&Ox4, patient has no s/s of acute respiratory distress. Patient reporting pain throughout shift dilaudid given PRN. Patient complains of abdominal pain stomach is non tender and distended. Patient reporting loose stool x3. Safety measures provided bed in lowest position, side rials up x2, call light within reach. Will endorse to oncoming nurse.
--- NOTE | 2020-10-12 19:30 | NUR ---
Pt received sitting up in bed. Denies any difficulty breathing at this time . Pt pulled out IV on accident. New one will be inserted. Will continue to monitor.
[2020-10-12 21:40] VITALS: BP 110/67
--- NOTE | 2020-10-12 22:43 | NUR ---
Pt is refusing IV fluids at this time.
[2020-10-13] MEDS: HYDROMORPHONE 1 MG/1 ML DISP.SYRIN IV PRN ×3 (02:04→09:58)
[2020-10-13] MEDS ORDERED: HYDROMORPHONE 2 MG/1 ML DISP.SYRIN IVP ONE (03:15)
[2020-10-13] MEDS: levoFLOXacin 500 MG/D5W 500 MG in PREMIXED 1 EACH IV SCH (03:26)
[2020-10-13] MEDS ORDERED: diphenhydrAMINE 25 MG CAP PO PRN (04:15)
[2020-10-13 05:20] VITALS: BP 133/64
--- NOTE | 2020-10-13 06:55 | NUR ---
Pt was awake most of the night. Called periodically for pain meds. Denies any SOB at this time. Will endorse to day shift.
--- NOTE | 2020-10-13 07:30 | NUR ---
Received patient by the nursed station yelling that he wants his blood work to be drawn. He is awake alert and oriented times 4.. Patient is hostile verbally and keeps leaving his room to come to the nursing station during report. Spoke to him and got him back in his room while report was received. Safety precaution are in place with call light and belongings within reach. will continue to monitor.
[2020-10-13] MEDS ORDERED: PANTOPRAZOLE SODIUM 40 MG VIAL IV SCH (09:00)
[2020-10-13 09:13] LABS: BASOPHILS % (AUTO) 0.6 % (0.0-2.0); EOSINOPHILS # (AUTO) 0.2 K/uL (0.0-0.7); HEMOGLOBIN 14.3 g/dL (12.5-16.3); LYMPHOCYTES # (AUTO) 1.5 K/uL (20.0-40.0); LYMPHOCYTES % (AUTO) 24.9 % (20.5-51.5); MEAN CORPUSCULAR HEMOGLOBIN 28.5 uug (23.8-33.4); MEAN CORPUSCULAR HGB CONC 35 g/dL (32.5-36.3); MEAN CORPUSCULAR VOLUME 81.6 fL (73.0-96.2); MONOCYTES # (AUTO) 0.7 K/uL (2.0-10.0); MONOCYTES % (AUTO) 10.9 % (0.0-11.0); NEUTROPHILS # (AUTO) 3.6 K/uL (1.8-8.9); NEUTROPHILS % (AUTO) 59.6 % (38.5-71.5); PLATELET COUNT (AUTO) 268 K/uL (152-348); RED BLOOD CELL COUNT(AUTO) 5.03 MIL/uL (4.06-5.63)
[2020-10-13 09:19] LABS: BILIRUBIN,TOTAL 5.9 mg/dL (0.2-1.0); CREATININE 0.8 mg/dL (0.6-1.3); POTASSIUM 3.3 mmol/L (3.5-5.1); TOTAL PROTEIN, SERUM 7.6 g/dL (6.4-8.2)
[2020-10-13 11:30] VITALS: BP 119/67
--- NOTE | 2020-10-13 12:20 | NUR ---
Patient left AMA, IV was removed and ID band taken off. Patient was not in any distress at time of leaving. Patient signed AMA form. Incident report will be completed. made aware.
[2020-10-14] MEDS ORDERED: PANTOPRAZOLE SODIUM 40 MG TABLET.DR PO SCH (11:30)
== END 2020-10-13 12:20 | disposition left against medical advice (07) | DRG 247 ==
LOC: ER 20:11 → TELE3 23:46 → MEDSURG3 10-12 00:38
PROVIDERS: ADMIT Internal Medicine; ATTEND Nurse Practitioner Acute Care
DX: K56.50 Intestinal adhesions [bands], unspecified as to partial versus complete obstruction (principal); D72.829 Elevated white blood cell count, unspecified; E66.9 Obesity, unspecified; G89.29 Other chronic pain; K21.9 Gastro-esophageal reflux disease without esophagitis; Z20.828 Contact with and (suspected) exposure to other viral communicable diseases; Z93.3 Colostomy status; Z98.84 Bariatric surgery status; A04.9 Bacterial intestinal infection, unspecified; R74.01 Elevation of levels of liver transaminase levels; Z68.31 Body mass index [BMI] 31.0-31.9, adult; K43.9 Ventral hernia without obstruction or gangrene; E80.4 Gilbert syndrome; F43.10 Post-traumatic stress disorder, unspecified; R17 Unspecified jaundice; V89.2XXS Person injured in unspecified motor-vehicle accident, traffic, sequela
CPT/HCPCS: 36415; 70030-TC; 71045; 74250; 83605; 83690; 83735; 84100; 85025; 85730; 93005; A4663; G0378; J1170; J1200; J1956; J2405; J3480; J7030; J7042; Q0163; Q9963; U0003

== ENCOUNTER 2021-02-19 00:50 | Emergency (ER) | payer OTHER ==
[~2021-02-19] VITALS: Ht 177.8 cm; Wt 117.9 kg
[~2021-02-19 00:50] MED LIST changes: -GABA-532 PO; +OMEP40CA13 PO; -[UNRECOGNIZED DRUG - OTHER] PO
--- NOTE | 2021-02-19 01:15 | NUR ---
MD Brooks in room to [facility] [place].
--- NOTE | 2021-02-19 01:33 | NUR ---
generation engineering technologist in room to take x-ray of patient.
[2021-02-19] MEDS ORDERED: SULFAMETH/TRIMETH 800/160 MG TABLET PO ONE (02:00)
[2021-02-19] MEDS ORDERED: HYDROCODONE/APAP 10-325 MG TABLET PO ONE (02:00)
[2021-02-19] MEDS ORDERED: HYDROCODONE/APAP 10-325 MG TABLET ONE (02:03)
[2021-02-19] MEDS ORDERED: SULFAMETH/TRIMETH 800/160 MG TABLET ONE (02:04)
[2021-02-19 02:11] LABS: BASOPHILS # (AUTO) 0.1 K/uL (0.0-8.0); BASOPHILS % (AUTO) 0.5 % (0.0-2.0); EOSINOPHILS # (AUTO) 0.3 K/uL (0.0-0.7); EOSINOPHILS % (AUTO) 2.8 % (0.0-7.0); HEMATOCRIT 38.9 % (36.7-47.1); HEMOGLOBIN 13.7 g/dL (12.5-16.3); LYMPHOCYTES # (AUTO) 2.3 K/uL (20.0-40.0); LYMPHOCYTES % (AUTO) 23.3 % (20.5-51.5); MEAN CORPUSCULAR HEMOGLOBIN 28.9 uug (23.8-33.4); MEAN CORPUSCULAR HGB CONC 35 g/dL (32.5-36.3); MEAN CORPUSCULAR VOLUME 82.1 fL (73.0-96.2); MONOCYTES % (AUTO) 9.6 % (0.0-11.0); NEUTROPHILS # (AUTO) 6.3 K/uL (1.8-8.9); NEUTROPHILS % (AUTO) 63.8 % (38.5-71.5); PLATELET COUNT (AUTO) 308 K/uL (152-348); RED BLOOD CELL COUNT(AUTO) 4.74 MIL/uL (4.06-5.63); WHITE BLOOD COUNT (AUTO) 9.9 K/uL (3.6-10.2)
[2021-02-19 02:17] LABS: CREATININE 1.1 mg/dL (0.6-1.3); POTASSIUM 3.3 mmol/L (3.5-5.1)
[2021-02-19 02:23] LABS: BILIRUBIN,DIRECT 0.4 mg/dL (0.0-0.2); BILIRUBIN,TOTAL 3.2 mg/dL (0.2-1.0); TOTAL PROTEIN, SERUM 7.6 g/dL (6.4-8.2)
--- NOTE | 2021-02-19 02:30 | NUR ---
Patient is resting on right on bed, using cellphone. Some distress noted as patient c/o of right leg pain.
[2021-02-19] MEDS ORDERED: POTASSIUM BICARBONATE/CIT AC 25 MEQ TABLET.EFF PO ONE (02:45)
[2021-02-19] MEDS ORDERED: POTASSIUM BICARBONATE/CIT AC 25 MEQ TABLET.EFF ONE (03:15)
--- NOTE | 2021-02-19 03:20 | NUR ---
Patient is on cell phone, resting on bed. States pain of his right leg has improved, but still achy.
--- NOTE | 2021-02-19 03:50 | NUR ---
Patient requested water, because he said his mouth feels dry. Gave him water, OK per MD Brooks.
--- NOTE | 2021-02-19 04:25 | NUR ---
Patient c/o of his right leg pain, MD Brooks notified.
[2021-02-19] MEDS ORDERED: OXYCODONE/APAP 5-325 MG TABLET PO ONE ×2 (04:30→05:15)
--- NOTE | 2021-02-19 04:30 | NUR ---
MD Brooks called in regards to Percocet 5-325 tablet. MD Brooks states medication will be 2 tablets, not 5 tablets.
[2021-02-19] MEDS ORDERED: OXYCODONE/APAP 5-325 MG TABLET ONE (05:17)
--- NOTE | 2021-02-19 05:30 | NUR ---
Repeat troponin performed by lab coordinator.
[2021-02-19] MEDS ORDERED: MAG HYDROX/AL HYDROX/SIMETH 30 ML LIQUID UDC PO ONE (06:00)
[2021-02-19] MEDS ORDERED: PANTOPRAZOLE SODIUM 40 MG VIAL IV ONE (06:00)
[2021-02-19] MEDS ORDERED: LIDOCAINE VISCUS 2% 15 ML UDC MM ONE (06:00)
[2021-02-19] MEDS ORDERED: HYDR-3980 PO ×2 (06:07→06:11)
[2021-02-19] MEDS ORDERED: SULF1TAB48 PO (06:07)
[2021-02-19] MEDS ORDERED: MAG HYDROX/AL HYDROX/SIMETH 30 ML LIQUID UDC ONE (06:27)
[2021-02-19] MEDS ORDERED: PANTOPRAZOLE SODIUM 40 MG TABLET.DR PO ONE ×2 (06:29→06:30)
[2021-02-19 06:30] VITALS: BP 124/74
--- NOTE | 2021-02-19 06:30 | NUR ---
Patient discharged to home in stable condition. Written and verbal after care instructions given. Patient verbalizes understanding of instructions. Stressed follow up or return to ER for worsening s/s. Patient ambulates with steady gait, received paper Rx, left with personal belongings, V/S stable.
== END 2021-02-19 06:30 | disposition home or self-care (01) ==
LOC: ER 00:54
DX: R07.9 Chest pain, unspecified (principal); Z20.822 Contact with and (suspected) exposure to COVID-19; L03.115 Cellulitis of right lower limb; Z88.0 Allergy status to penicillin; Z88.8 Allergy status to other drugs, medicaments and biological substances; Z90.49 Acquired absence of other specified parts of digestive tract; R94.31 Abnormal electrocardiogram [ECG] [EKG]
CPT/HCPCS: 36415; 71045; 80048; 80076; 84484 ×2; 85025; 87426; 93005 ×2; 99285; U0003; 70030-TC; A4663